=== PATIENT | male | born 1945 | race Caucasian/White ===

== ENCOUNTER → 2020-07-11 13:43 | Outpatient (BNVA) | payer MEDICARE, SELFPAY | PROVIDERS: PCP Family Medicine; Referring Provider Family Medicine; Visit Provider Internal Medicine | DX: I25.10 Atherosclerotic heart disease of native coronary artery without angina pectoris (principal); E78.5 Hyperlipidemia, unspecified; F17.200 Nicotine dependence, unspecified, uncomplicated | CPT/HCPCS: 93005; 99212 ==

== ENCOUNTER → 2020-08-06 11:36 | Outpatient (BNVA) | payer MEDICARE, SELFPAY | PROVIDERS: PCP Family Medicine; Referring Provider Family Medicine; Visit Provider Surgery Vascular Surgery | DX: I71.4 Abdominal aortic aneurysm, without rupture (principal) | CPT/HCPCS: 99212 ==

== ENCOUNTER → 2020-08-08 12:25 | Outpatient (BNVA) | payer MEDICARE, SELFPAY | PROVIDERS: PCP Family Medicine; Referring Provider Family Medicine; Visit Provider Nurse Practitioner Family | DX: Z12.11 Encounter for screening for malignant neoplasm of colon (principal); R14.0 Abdominal distension (gaseous) | CPT/HCPCS: Q3014 ==

== ENCOUNTER → 2020-08-21 13:21 | Outpatient (BNVA) | payer MEDICARE, SELFPAY | PROVIDERS: PCP Nurse Practitioner Family; Visit Provider Internal Medicine | DX: Z76.89 Persons encountering health services in other specified circumstances (principal) ==

== ENCOUNTER → 2020-10-04 11:05 | Outpatient (REF) | payer MEDICARE, SELFPAY ==
--- NOTE | 2020-10-04 11:09 | CA_ITS ---
Transthoracic Echocardiogram Patient (Last, First, Middle): Aroldo Hill, Gender: Male Date of : 1945 Age: 74 Procedure Date: 10/04/2020 Procedure Type: Transthoracic Echocardiogram Location: OP Height: 172.72 cm Weight: 82.56 kg BSA: 1.96 m2 Heart Rate: bpm BP: 130 / 82 mmHg Chief Of Anesthesiology: IBETH Hernandez MD: Filemon Moore MD Symptoms: I25.10 - Atherosclerotic heart disease of [place] coronary artery without angina pectoris Study Quality: Fair ECG Rhythm: Sinus Conclusions: - The left ventricular systolic function is normal. The visually estimated ejection fraction is between 65-70%. - No obvious valvular pathology seen on this study. Findings Left Ventricle Normal left ventricular cavity size. There is normal left ventricular wall thickness. The left ventricular systolic function is normal. The visually estimated ejection fraction is between 65-70%. There is no evidence of regional wall motion abnormalities. Diastolic function is normal for age. Right Ventricle Normal right ventricular cavity size and systolic function. Atria The left atrium is normal in size. The right atrium is normal in size. Aortic Valve The aortic valve was not well visualized. There is no aortic valve stenosis. There is no aortic valve regurgitation. Mitral Valve The mitral valve appears normal. There is no mitral valve regurgitation. There is no mitral valve stenosis. Pulmonic Valve The pulmonic valve was not well visualized. Tricuspid Valve Normal tricuspid valve structure. There is trace tricuspid valve regurgitation. The pulmonary artery systolic pressure is normal. Great Vessels The aortic annulus, sinuses of valsalva, and asc aorta are normal in size. Venous The inferior vena cava is normal in size and collapses greater than 50% with inspiration. Pericardium/Pleural There is no evidence of pericardial effusion. Prior Study Comparison No significant change compared to prior study dated: 02/28/2019. Recommendations, Care & Conclusions No obvious valvular pathology seen on this study. Measurements M-Mode Liner Measurements Normals - Women/Men AOV Cusps: 2.50 1.5-2.6 cm/m2 2D Linear Measurements IVSd: 0.98 0.6-0.9/0.6-1.0 cm LVIDd: 4.31 3.9-5.3/4.2-5.9 cm LVIDd Index: 2.20 2.4-3.2/2.2-3.1 cm/m2 LVIDs: 2.65 2.0-3.6 cm LVPWd: 0.94 0.7-1.1 cm Ao Root: 3.30 2.1-3.5 cm LA Diam: 3.40 2.7-3.8/3.0-4.0 cm LAIDs Index: 1.73 1.5-2.3 cm/m2 LV Mass: 168.21 67-162/88-224 g LV Mass Index: 85.82 43-95/49-115 g/m2 LVOT Diam: 2.30 3.0+(-)1.3 cm 2D Systolic Function EF 4C: 64.60 >55% EF 2C: 66.50 >55% EF BiP: 65.60 >55% Mitral Valve MV Pk E: 0.86 MV PK A: 0.87 MV Decel Time: 324.00 E/A: 1.00 E'Lateral: 9.90 E'Medial: 7.29 E/E' Med: 11.80 E/E' Lat: 8.70 PHT: 95.00 MVA PHT: 2.32 Decel [place]: 2.65 Aortic Valve AoV Pk Rj: 1.47 AoV Pk Grad: 9.00 LVOT LVOT Pk Rj: 0.91 LVOT Mn Rj: 0.68 LVOT VTI: 0.25 LVOT Pk Grad: 3.00 LVOT Mn Grad: 2.00 LVOT Diam: 2.30 LVOT Area: 4.15 Diastolic Function MV Pk E: 0.86 MV Pk A: 0.87 E/A: 1.00 E'Medial: 7.29 E/E' Med: 11.80 E' Laterial: 9.90 E/E' Lat: 8.70 Tricuspid Valve RA Press: 3.00 RVSP: 17.00 Great Vessels Aorta Ao Root-2D: 3.30 2.0-3.7 cm Ao Asc: 3.20 2.1-3.4 cm Ao Arch: 2.90 Updated in Other Vendor System with Status of Final Filemon Moore MD electronically signed on 10/05/2020 4:22:36 PM with status of Final
== END ==
LOC: HO.CARD 11:05
PROVIDERS: Visit Provider Internal Medicine Cardiovascular Disease
DX: R07.2 Precordial pain (principal); I25.10 Atherosclerotic heart disease of native coronary artery without angina pectoris
CPT/HCPCS: 93306

== ENCOUNTER 2020-10-28 12:09 | Outpatient (REF) | payer MEDICARE, SELFPAY | END 2020-10-28 12:10 | disposition home or self-care (01) | LOC: HO.LAB 12:09 | PROVIDERS: Visit Provider Internal Medicine | DX: Z20.822 Contact with and (suspected) exposure to COVID-19 (principal) | CPT/HCPCS: 36415; C9803; U0003; U0005 ==

== ENCOUNTER 2021-04-25 07:49 | Outpatient (REF) | payer MEDICARE, SELFPAY ==
--- NOTE | ~2021-04-25 | US_ITS ---
EXAMINATION: US RETROPERITONEAL LIMITED (AORTA) CLINICAL INFORMATION: Follow up AAA. COMPARISON: Ultrasound of the abdominal aorta dated 12/10/2017 which measured the abdominal aortic aneurysm at 4.1 x 4.3 cm. TECHNIQUE: Grayscale, color Doppler and spectral Doppler evaluation of the abdominal aorta. FINDINGS: There is a distal abdominal aortic aneurysm now measuring 5.0 x 5.6 cm. The measurements of the aorta in maximum AP and transverse dimensions respectively are as follows: Proximal: 2.3 x 2.4 cm. Previously, 2.5 x 2.4 cm. Mid: 2.2 x 2.3 cm. Previously, 2.2 x 2.3 cm. Distal: 5.0 x 5.6 cm. Previously, 4.1 x 4.3 cm. The measurements of the common iliac arteries in maximum AP dimension are as follows: Right Common Iliac Artery: 1.1 x 1.1 cm. Previously, 1.3 cm. Left Common Iliac Artery: 1.3 x 1.1 cm. Previously, 1.1 cm. US/US abdominal aortic aneurysm IMPRESSION: Distal fusiform abdominal aortic aneurysm now measuring a maximum diameter of 5.6 cm. Previously, the abdominal aortic aneurysm maximum diameter was 4.3 cm.
== END 2021-04-25 07:50 | disposition home or self-care (01) ==
LOC: HO.US 07:49
PROVIDERS: PCP Internal Medicine; Visit Provider Internal Medicine
DX: I71.4 Abdominal aortic aneurysm, without rupture (principal)
CPT/HCPCS: 76706

== ENCOUNTER → 2021-04-29 13:20 | Outpatient (BNVA) | payer MEDICARE, SELFPAY | PROVIDERS: PCP Family Medicine; Referring Provider Internal Medicine; Visit Provider Surgery Vascular Surgery | DX: I71.4 Abdominal aortic aneurysm, without rupture (principal) | CPT/HCPCS: 99212 ==

== ENCOUNTER → 2021-05-08 13:15 | Outpatient (BNVA) | payer MEDICARE, SELFPAY | PROVIDERS: PCP Family Medicine; Referring Provider Family Medicine; Visit Provider Internal Medicine | DX: Z01.810 Encounter for preprocedural cardiovascular examination (principal); I25.10 Atherosclerotic heart disease of native coronary artery without angina pectoris; I42.8 Other cardiomyopathies; R06.02 Shortness of breath | CPT/HCPCS: 99212 ==

== ENCOUNTER 2021-05-14 09:38 | Outpatient (REF) | payer MEDICARE, SELFPAY ==
--- NOTE | ~2021-05-14 | CT_ITS ---
EXAMINATION: CT ANGIOGRAM ABDOMEN AND PELVIS CLINICAL INFORMATION: Abdominal aortic aneurysm, without rupture. COMPARISON: None TECHNIQUE: Multiple axial images were obtained through the abdomen and pelvis following the administration of 80 mL of Omnipaque 350 intravenous contrast. Images were reviewed on a dedicated 3-D workstation. This CT examination was performed using dose optimization techniques as appropriate, variously including the following: *Automated exposure control *Adjustment of mA and/or kV according to patient size (this includes techniques or standardized protocols for targeted exams where dose is matched to indication/reason for exam; i.e. extremities or head) *Use of iterative reconstruction technique DLP: 257 mGy-cm VASCULAR FINDINGS: An attempt was made to create a 3-D model of the abdominal aorta, and my measurements perpendicular to the center line are 5.5 x 4.9 cm (504:380). Considerable circumferential thrombus is present within the aneurysm. The aneurysm begins approximately 2.5 cm below the level of the renal arteries. The aneurysm ends at the aortic bifurcation. The iliac vessels are very tortuous but widely patent without aneurysm or stenosis. Femoral bifurcations are patent. Proximal profunda femoris and superficial femoral arteries are widely patent. The celiac SMA and JERRY are patent. There are single renal arteries present bilaterally which are patent. NONVASCULAR FINDINGS: LUNG BASES: Bibasilar scarring/atelectasis is seen. LIVER, GALLBLADDER, AND BILIARY TREE: The liver is normal in size, shape, and attenuation. No focal hepatic lesion or biliary ductal dilatation is present. The gallbladder is unremarkable with no evidence of radiopaque gallstones, gallbladder wall thickening, or obvious pericholecystic inflammatory changes. PANCREAS: Unremarkable. SPLEEN: Unremarkable. ADRENAL GLANDS: Unremarkable. KIDNEYS AND URETERS: The kidneys are normal in size, shape, and attenuation. No hydronephrosis, hydroureter, or calculi seen. No perinephric stranding. BLADDER: Unremarkable. GASTROINTESTINAL TRACT: A small hiatal hernia is present. Colonic diverticula are present without diverticulitis. The small and large bowel are otherwise unremarkable. The appendix is unremarkable. ABDOMINAL WALL: No significant hernia is appreciated. LYMPH NODES: No retroperitoneal lymphadenopathy. PELVIC VISCERA: Unremarkable. OSSEOUS STRUCTURES: Unremarkable. CT/CT angio abdomen pelvis IMPRESSION: Infrarenal abdominal aortic aneurysm with maximal dimension of 5.5 cm. Aneurysm begins 2.5 cm below the level of the renal arteries and ends at the aortic bifurcation. Incidental nonvascular findings, as described above.
[2021-05-14 10:32] LABS: Blood Urea Nitrogen 14 mg/dL (9-16); Estimated Glomerular Filt Rate 60
[2021-05-14] MEDS: iohexoL 350 MG/ML 100 ML INFUS..BTL IV (11:34)
== END 2021-05-14 09:39 | disposition home or self-care (01) ==
LOC: HO.CT 09:38
PROVIDERS: Visit Provider Surgery Vascular Surgery
DX: I71.4 Abdominal aortic aneurysm, without rupture (principal)
CPT/HCPCS: 36415; 74174; 82565; 84520; Q9967

== ENCOUNTER → 2021-05-19 09:33 | Outpatient (REF) | payer MEDICARE, SELFPAY ==
--- NOTE | ~2021-05-19 | NM_ITS ---
Lexiscan Myocardial perfusion study Indication: Preoperative cardiac evaluation, coronary artery disease Technique: The patient was brought in for a Lexiscan perfusion study on 05/19/2021 and was injected 0.4 mg of Lexiscan intravenously. Within a minute of this injection 30 mCi of sestamibi was given intravenously. Images were obtained using the SPECT gamma camera interlaced with the gating device. Images were obtained in supine position. Resting perfusion study was performed on 05/22/2021. Patient was administered 30 mCi of sestamibi intravenously at rest. Images were then obtained in supine position. Total DLP 86mGy-cm. Images were processed with the software and compared side to side in short axis, horizontal long axis and vertical long axis views. Findings: Raw acquisition was reviewed. The stress perfusion study showed mildly diminished tracer uptake at the apex and adjacent part of inferior wall and inferior septum. Overall, uptake seems improved with CT attenuation correction excluding focal location of the apex. Overall, this is all likely artifactual. The gated study shows normal LV systolic function with calculated LVEF of 61%. LV cavity is normal in size. The gated study shows normal wall thickening and contraction of segments. Resting study shows mildly reduced tracer uptake at the apex, apical part of inferior wall. There is improvement with CT attenuation correction excluding a focal location of the apex. Gating at rest reveals normal wall motion with ejection fraction at 67%. The findings are consistent with no definite reversible or fixed defects. SC/SC cardiolite stress test Impression: 1. Myocardial perfusion imaging study shows likely normal myocardial perfusion. 2. Gated LVEF is 61% during stress and 67% during rest. 3. Transient ischemic dilatation not present. EKG component of the test reported separately.
--- NOTE | 2021-05-19 09:35 | CA_ITS ---
Acquisition Time: 2021-05-19 09:33:15 Total Exercise Time: 00:02:00 Test Indications: I71.4 - Abdominal aortic aneury Medications: Protocol: LEXISCAN Max HR: 078 BPM 53% of Pred: 147 BPM Max BP: 120/082 mmHG Max Work Load: 1.0 METS Pharmacological stress test with Lexiscan injection, while sitting and kicking his legs, without anginal symptoms, without arrythmia, with normotensive response to injection, with nondiagnostic EKG for ischemia. Nuclear images pending. Test reviewed with Dr Wang. Referred By: Filemon Moore Overread By: TROY ELY
== END ==
LOC: HO.CARD 09:33
PROVIDERS: Visit Provider Internal Medicine
DX: I71.4 Abdominal aortic aneurysm, without rupture (principal); R06.02 Shortness of breath
CPT/HCPCS: 78452; 93017; A9500; J0280; J2785

== ENCOUNTER → 2021-05-27 13:11 | Outpatient (BNVA) | payer MEDICARE, SELFPAY | PROVIDERS: PCP Family Medicine; Visit Provider Surgery Vascular Surgery | DX: I71.4 Abdominal aortic aneurysm, without rupture (principal) | CPT/HCPCS: 99212 ==

== ENCOUNTER 2021-06-16 06:08 | Inpatient (IN) | payer MEDICARE, SELFPAY ==
[2021-06-12 15:20] VITALS: BMI 28.5
[2021-06-12 15:33] VITALS: BMI 28.5
--- NOTE | 2021-06-13 13:05 | HO.ANESPROP2 ---
Documented by User: Colleen Murphy NP 06/13/21 13:16 HPI - Anesthesia Eval Consult details Narrative: 75yo M for Aortic Endovascular Repair Cardiology cleared @ [facility] Booked in OR without PAT (d/t reschedule). Labs and EKG DOS. [facility] Active Problems Active Problems: All Active Problems (Updated 06/12/21 @ 15:24 by Sandra Cano RN) Precordial chest pain (Acute) Preoperative cardiovascular examination (Acute) SOB (shortness of breath) (Acute) AAA (abdominal aortic aneurysm) without rupture (Acute) Atherosclerotic cardiovascular disease (Acute) Past Medical History Medical History AAA (abdominal aortic aneurysm) without rupture Atherosclerotic cardiovascular disease COPD (chronic obstructive pulmonary disease) Depression Elevated cholesterol GERD (gastroesophageal reflux disease) Gout Myocardial infarction NICM (nonischemic cardiomyopathy) Smoker Family History Family History Father Family history of high blood pressure Mother No problems noted. Surgical History Surgical History History of hernia repair Hx of cardiac catheterization Social History Social History Alcohol intake: never Patient Tobacco Use Status: Current everyday Tobacco user Tobacco use type: Cigarette Cigarettes Per Day: 13 Years Smoked: 56 Smoked in Last 30 Days: Yes Use of substances other than those prescribed or required for medical reasons: Yes Are you DNR?: No Advance Directives Information Provided: Yes Advance Directives on File: No Meds Allergies Allergy/AdvReac Type Severity Reaction Status Date / Time No Known Allergies Allergy Verified 06/16/21 06:36 [No Known Allergies*] Home Medications Medication Instructions Recorded Confirmed Last Taken Type aspirin 81 mg tablet,delayed 81 mg PO DAILY 07/11/20 06/16/21 06/15/21 History release atorvastatin 40 mg tablet 40 mg PO DAILY 07/11/20 06/12/21 Unknown History citalopram 10 mg tablet 10 mg PO DAILY 07/11/20 06/12/21 06/16/21 05:30 History fluticasone propionate 50 1 spray INTRANASAL DAILY 07/11/20 06/12/21 Unknown History mcg/actuation nasal spray,suspension metoprolol succinate 25 mg 25 mg PO DAILY 11/08/1806/12/21 06/16/21 05:30 History tablet,extended release 24 hr multivitamin 1 tab PO DAILY 07/11/20 06/12/21 Unknown History omeprazole 20 mg capsule,delayed 20 mg PO DAILY 07/11/20 06/12/21 06/16/21 05:30 History release oxycodone-acetaminophen 5 mg-325 1 tab PO TID PRN 07/11/20 06/12/21 Unknown History mg tablet Exam Exam Date and Time: June 13, 2021 1305 Height,Weight and Vital Signs: Height 5 ft 7 in Weight 82.554 kg Narrative Narrative: ECHO 09/2020 Conclusions: - The left ventricular systolic function is normal.? The visually estimated ejection fraction is between 65-70%. ? - No obvious valvular pathology seen on this study.? NM cardiolite stress test 04/2021 Impression: ? 1.? Myocardial perfusion imaging study shows likely normal myocardial perfusion. 2.? Gated LVEF is 61% during stress and 67% during rest. 3. Transient ischemic dilatation not present. ? EKG component of the test reported separately. (Nondiagnostic) Assessment and Plan Assessment Anesthesia Assessment: Chart Reviewed Documented by User: Kaitna Dao MD 06/16/21 08:49 [facility] Active Problems Active Problems: All Active Problems (Updated 06/12/21 @ 15:24 by Sandra Cano RN) Precordial chest pain (Acute) Preoperative cardiovascular examination (Acute) SOB (shortness of breath) (Acute) AAA (abdominal aortic aneurysm) without rupture (Acute) Atherosclerotic cardiovascular disease (Acute) Denies recent chest pain. DC over 15 years ago Smoker. Last cigarette this am Past Medical History Medical History AAA (abdominal aortic aneurysm) without rupture Atherosclerotic cardiovascular disease COPD (chronic obstructive pulmonary disease) Depression Elevated cholesterol GERD (gastroesophageal reflux disease) Gout Myocardial infarction NICM (nonischemic cardiomyopathy) Smoker Family History Family History Father Family history of high blood pressure Mother No problems noted. Family history of problems with anesthesia: No Surgical History Surgical History History of hernia repair Hx of cardiac catheterization History of Problems with Anesthesia: No Social History Social History Alcohol intake: never Patient Tobacco Use Status: Current everyday Tobacco user Tobacco use type: Cigarette Cigarettes Per Day: 13 Years Smoked: 56 Smoked in Last 30 Days: Yes Use of substances other than those prescribed or required for medical reasons: Yes Are you DNR?: No Advance Directives Information Provided: Yes Advance Directives on File: No Meds Allergies Allergy/AdvReac Type Severity Reaction Status Date / Time No Known Allergies Allergy Verified 06/16/21 06:36 [No Known Allergies*] Home Medications Medication Instructions Recorded Confirmed Last Taken Type aspirin 81 mg tablet,delayed 81 mg PO DAILY 07/11/20 06/16/21 06/15/21 History release atorvastatin 40 mg tablet 40 mg PO DAILY 07/11/20 06/12/21 Unknown History citalopram 10 mg tablet 10 mg PO DAILY 07/11/20 06/12/21 06/16/21 05:30 History fluticasone propionate 50 1 spray INTRANASAL DAILY 07/11/20 06/12/21 Unknown History mcg/actuation nasal spray,suspension metoprolol succinate 25 mg 25 mg PO DAILY 07/11/20 06/12/21 06/16/21 05:30 History tablet,extended release 24 hr multivitamin 1 tab PO DAILY 07/11/20 06/12/21 Unknown History omeprazole 20 mg capsule,delayed 20 mg PO DAILY 07/11/20 06/12/21 06/16/21 05:30 History release oxycodone-acetaminophen 5 mg-325 1 tab PO TID PRN 07/11/20 06/12/21 Unknown History mg tablet Exam Height,Weight and Vital Signs: Height 5 ft 7 in Weight 82.554 kg Vital Signs Temp Pulse Resp BP Pulse Ox 06/16/21 06:38 97.5 F 50 16 144/69 H 96 Pertinent Lab Results Pertinent Lab Results: Lab Results 06/16/21 06/16/21 06/16/21 Range/Units 06:15 06:22 06:22 WBC 9.3 (4.8-10.8) X10*3/uL RBC 4.58 L (4.60-5.80) X10*6/uL Hgb 15.4 (14.0-18.0) g/dl Hct 45.6 (42-52) % MCV 99.6 H (80-98) fL MCH 33.6 H (27.0-33.0) pg MCHC 33.8 (31.0-36.0) g/dl RDW 12.3 (11.0-16.0) % Plt Count 183 (160-400) X10*3/uL MPV 10.4 (9.4-12.4) fL Absolute Nucleated RBC 0.000 (0.0-0.012) X10*3/uL Nucleated RBC % (auto) 0.0 (0.0-0.2) /100WBC PT 12.4 (9.9-13.0) SEC INR 1.1 (0.9-1.1) APTT 32.9 (24.1-38.0) SEC Sodium (135-145) mmol/L Potassium (3.3-5.1) mmol/L Chloride (96-108) mmol/L Carbon Dioxide (22-29) mmol/L Anion Gap (12-20) BUN (9-16) mg/dL Creatinine (0.5-1.4) mg/dL Estim Creat Clear Calc Estimated GFR Random Glucose (60-115) mg/dL Calcium (8.4-10.2) mg/dL COVID-19 ([facility]) Negative (Negative) COVID-19 Clin Com See Note Blood Type 06/16/21 06/16/21 Range/Units 06:22 06:22 WBC (4.8-10.8) X10*3/uL RBC (4.60-5.80) X10*6/uL Hgb (14.0-18.0) g/dl Hct (42-52) % MCV (80-98) fL MCH (27.0-33.0) pg MCHC (31.0-36.0) g/dl RDW (11.0-16.0) % Plt Count (160-400) X10*3/uL MPV (9.4-12.4) fL Absolute Nucleated RBC (0.0-0.012) X10*3/uL Nucleated RBC % (auto) (0.0-0.2) /100WBC PT (9.9-13.0) SEC INR (0.9-1.1) APTT (24.1-38.0) SEC Sodium 143 (135-145) mmol/L Potassium 4.0 (3.3-5.1) mmol/L Chloride 110 H (96-108) mmol/L Carbon Dioxide 26 (22-29) mmol/L Anion Gap 11 L (12-20) BUN 19 H (9-16) mg/dL Creatinine 1.07 (0.5-1.4) mg/dL Estim Creat Clear Calc 62.8 Estimated GFR > 60 Random Glucose 103 (60-115) mg/dL Calcium 8.9 (8.4-10.2) mg/dL COVID-19 ([facility]) (Negative) COVID-19 Clin Com Blood Type A Positive Narrative Narrative: ECHO 09/2020 Conclusions: - The left ventricular systolic function is normal.? The visually estimated ejection fraction is between 65-70%. ? - No obvious valvular pathology seen on this study.? NM cardiolite stress test 04/2021 Impression: ? 1.? Myocardial perfusion imaging study shows likely normal myocardial perfusion. 2.? Gated LVEF is 61% during stress and 67% during rest. 3. Transient ischemic dilatation not present. ? EKG component of the test reported separately. (Nondiagnostic) 12 lead EKG 06/16/2021: SB.45. Septal infarct age undetermined Airway Mallampati Class: II TM Dist: >3cm Neck ROM: Full Denture: Upper and Lower Heart: RRR Lungs: Bilateral wheezes. Lungs CTAB post albuterol treatment Assessment and Plan Assessment Anesthesia Assessment: Anesthesia Plan Discussed Final Anesthetic Review Family History of Problems with Anesthesia: No History of Problems with Anesthesia: No NPO: Yes ASA Class: III Final Preanesthetic Review: No Changes in Pt Med Stat, Meds/Allgs Chart Reviewed, Consent Obtained/Reviewed and Anes Risks/Benef Reviewed Patient Risk: Intermediate Procedure Risk: High Assessment/Block/Sedation in : Assess/Block/Sedation-SS Anesthetic Plan Anesthetic Plan: GA and Other (Arterial line) Disposition: Standard PACU and Inp. Admit - ICU
[2021-06-16] VITALS (19 sets, daily range): BP systolic 106–144; BP diastolic 39–69; PULSE 41–62; RESP 13–18; TEMP 36.2–37.1; O2SAT 89–99; BMI 28.1
--- NOTE | 2021-06-16 | ECG_ITS ---
Test Reason : ASCD, AAA, Smoker, NICM Blood Pressure : / mmHG Vent. Rate : 045 BPM Atrial Rate : 045 BPM P-R Int : 168 ms QRS Dur : 082 ms QT Int : 450 ms P-R-T Axes : 064 -19 056 degrees QTc Int : 389 ms Sinus bradycardia Low voltage QRS Abnormal ECG Heart rate has decreased Referred By: Colleen Murphy Electronically Signed By:LAVERN MILLS MD
--- NOTE | ~2021-06-16 | FL_ITS ---
EXAMINATION: XR FL WITH IMAGES CLINICAL INFORMATION: Abdominal aortic aneurysm. COMPARISON: CT angiogram 05/14/2021. TECHNIQUE: Fluoroscopy performed by Dr. Foreign Eddy. Fluoroscopy Time: 11.9 minutes. DAP: 36.6 Gycm2. Images: A total of 6 angiographic runs. FINDINGS: Progressive imaging demonstrates placement of an aortobiiliac stent graft. FL/FL guidance in OR IMPRESSION: Fluoroscopy and angiographic imaging provided for placement of aortobiiliac stent graft.
[2021-06-16 06:30] LABS: Hematocrit 45.6 % (42-52); Hemoglobin 15.4 g/dl (14.0-18.0); Mean Corpuscular HGB Conc 33.8 g/dl (31.0-36.0); Mean Corpuscular Hemoglobin 33.6 pg (27.0-33.0); Mean Corpuscular Volume 99.6 fL (80-98); Mean Platelet Volume 10.4 fL (9.4-12.4); Platelet Count 183 X10*3/uL (160-400); Red Blood Count 4.58 X10*6/uL (4.60-5.80); Red Cell Distribution Width 12.3 % (11.0-16.0); White Blood Count 9.3 X10*3/uL (4.8-10.8)
[2021-06-16 06:47] LABS: Anion Gap 11 (12-20); Blood Urea Nitrogen 19 mg/dL (9-16); Calcium 8.9 mg/dL (8.4-10.2); Carbon Dioxide 26 mmol/L (22-29); Chloride 110 mmol/L (96-108); Creatinine Clr Calc Pharmacy 62.8; Estimated Glomerular Filt Rate > 60; Glucose Random 103 mg/dL (60-115); Sodium 143 mmol/L (135-145)
[2021-06-16 06:53] LABS: INTERNATIONAL NORM RATIO 1.1 (0.9-1.1); Prothrombin Time 12.4 SEC (9.9-13.0)
[2021-06-16 06:54] LABS: COVID-19 Test Negative (Negative); IDNOW Serial# 9DD0AD1C
[2021-06-16 06:56] LABS: Partial Thromboplastin Time 32.9 SEC (24.1-38.0)
[2021-06-16] MEDS: Lactated Ringers 1,000 ML 50 ML IVCONT (07:21)
[2021-06-16] MEDS: Albuterol Sulfate (0.083%) 2.5 MG/3 ML VIAL.NEB INHALE (07:49)
--- NOTE | 2021-06-16 10:50 | MHC.SHP ---
Pre-Procedural Eval Section A Date of Service: 06/16/21 The patient is an INPATIENT: No The History & Physical has been completed within 30 days and I have reviewed it.: Yes Section B Chief Complaint: Post op Allergies: Allergies Allergy/AdvReac Type Severity Reaction Status Date / Time No Known Allergies Allergy Verified 06/16/21 06:36 [No Known Allergies*] Plan I have reviewed the history and physical and performed a pertinent physical examination on my patient. No changes have occurred unless specified.
--- NOTE | 2021-06-16 11:08 | P.OP_ITS ---
Operative Note Operative Note Date of Service: 06/16/21 Narrative: Operative note by [facility] Preoperative diagnosis: Abdominal aortic aneurysm without rupture Postoperative diagnosis: Same Procedure: Endovascular aortic aneurysm repair (Endologix AFX2) Surgeon:Blake Eddy M.D. Visual Merchandising Assistant: Dr. Lamar Anesthesia: General Specimens: 0 Drains:0 Estimated blood loss:100 ml Indications: 75-year-old gentleman with a 5.5 cm abdominal aortic aneurysm which was noted on CT scan now presents for endovascular repair. The patient has signed the informed consent after reviewing risks, complications, benefits, and alternatives previously discussed with the patient. The patient was given the opportunity to ask any additional questions or voice any concerns. All questions were answered to the patient's satisfaction. Procedure in detail: Patient was brought to the operating room prior to which a time-out was called for patient identification and site verification. Patient was prepped and draped in the standard surgical fashion. Cutdown was performed using standard technique using a transverse incision going on to the common femoral artery. This was isolated with silastic loops. Once down on the left side a direct arterial entry needle was used on the common femoral artery. A 7 [place] sheath was then placed. On the right side this was performed percut aneously under ultrasound guidance using arterial access needle and subsequently a [employer] wire and 7 [place] sheath. Once this was done angiogram was performed to measure the vessel length and characterize the anatomy and its topography. We exchanged on the left side for a Lunderquist wire. We loaded the SONYA 28-90/I 16-30 Endologix device on to the left side and advanced the contralateral wire up through the 19 [place] outer diameter affects introducer sheath using the wire guide. Contralateral wire snared and pulled out out the contra side. A FX 2 bifurcated device was transferred into the a FX introducer sheath and advanced under fluoro until the distal limbs were above the aortic bifurcation releasing the limbs of the graft. We pulled the entire system down onto the aortic bifurcation. We deployed the main body of the graft by pulling the control cord handle. We then deployed the contralateral limb by pulling the yellow limb cover. Then advancing a pigtail catheter over the contra wire until the tip was in contact with the wire lock. We held the pigtail catheter in place and pulled on the contra wire to release it from the wire lock. We then deployed the ipsilateral limb by pinning the inner core and retracting the a FX introducer sheath. Final angiogram was performed. Right side StarClose closure device was then used. On the left side we closed the cutdown directly visualization with a 6 0 Prolene suture on the artery. Deep layer was reapproximated using a 2 0 poly Sorb. Superficial layer with a 3-0 poly sore. Finally skin with a running subcuticular 4-0 Monocryl suture. Sterile dressing was applied. At the end the case sponge needle instrument counts were correct. Patient tolerated the procedure well and returned to recovery with stable vitals. This note is constructed using voice recognition software. While every effort has been made to ensure accuracy, open hearth laborer errors may have been included. Thank you for allowing me to participate in the care of your patient. Yours sincerely, Blake Eddy MD, FACS, R.P.V.I.
[2021-06-16] MEDS: 0.9 % Sodium Chloride 1,000 ML 80 ML IVCONT (12:16)
[2021-06-16] MEDS: Heparin Sodium,Porcine 5,000 UNIT/ML VIAL 5000 UNIT SUBCUT ×2 (12:16→18:06)
[2021-06-16] MEDS: ceFAZolin Sodium/Dextrose,Iso 2 GM/50 ML PIGGYBACK IV (14:23)
--- NOTE | 2021-06-16 16:06 | W.PM.CCCN ---
History of Present Illness Data of Consult Service Date: 06/16/21 Requesting physician: Blake Eddy Primary Care Provider: Paulo Harden MD HPI Reason for consult: Postop endovascular repair of AAA 75-year-old ongoing smoker with COPD and underlying hypertension and very questionable history of cardiomyopathy the based on an ejection fraction from an echo that was in the mid 30s but subsequent to this and and done recently as a preop we have corroboration of ejection fraction in the mid 60s by both echo without segmental wall motion abnormality and without primary valve or pericardial disease and by nuclear stress testing which also failed to demonstrate any ischemia. Patient is also a hyperlipidemic on treatment Underwent successful endovascular repair without complication Review of Systems Review of Systems: Ten point review of systems negative [facility] Past Medical History Medical History AAA (abdominal aortic aneurysm) without rupture Atherosclerotic cardiovascular disease COPD (chronic obstructive pulmonary disease) Depression Elevated cholesterol GERD (gastroesophageal reflux disease) Gout Myocardial infarction NICM (nonischemic cardiomyopathy) Smoker Family History Family History Father Family history of high blood pressure Mother No problems noted. Surgical History Surgical History History of hernia repair Hx of cardiac catheterization Social History Social History Household Members: Family and Children Housing: Apartment Do you presently have visiting nurse or other home services: Yes (nurse that gives him medication every week, comes fridays) Alcohol intake: never Patient Tobacco Use Status: Current everyday Tobacco user Tobacco use type: Cigarette Cigarettes Per Day: 13 Years Smoked: 56 Smoked in Last 30 Days: Yes e-Cigarette/Vaping Use: Currently Using Patient Interested in Nicotine Replacement: No Patient Given Instructions on How to Stop Smoking: Yes Date Education Initiated: 06/16/21 Second Hand Smoke Exposure: No Use of substances other than those prescribed or required for medical reasons: Yes Substance Use Type: Marijuana Currently Displaying Signs/Symptoms of Drug Intoxication Withdrawal: No Any prior treatment program specific to substance use: No Have you been hit, kicked, punched, or otherwise hurt by someone within the past year? If so, by whom?: No Do you feel safe in your current relationship?: No Current Relationship Is there a partner from a previous relationship who is making you feel unsafe now?: No Are you made to feel afraid or neglected: No Are you DNR?: No Advance Directives Information Provided: Yes Advance Directives on File: No Do you have thoughts of harming others: None Do you have a plan to hurt others: No Plan Recently lost weight without trying: No Nutrition Risks: No Nutritional Risk Meds Allergies Allergy/AdvReac Type Severity Reaction Status Date / Time No Known Allergies Allergy Verified 06/16/21 06:36 [No Known Allergies*] Active Medications: Current Medications Acetaminophen (Acetaminophen 325 Mg Tablet) 650 mg PO Q6H PRN PRN Reason: Pain, Mild (Pain Scale 1-3) Albuterol Sulfate (Albuterol Sulfate (0.083%) 2.5 Mg/3 Ml Vial.Elian) 2.5 mg INHALE ONCE PRN PRN Reason: Shortness of Breath/Wheezing Last Admin: 06/16/21 07:49 Dose: 2.5 mg Documented by: Aspirin (Aspirin Enteric Coated 81 Mg Tablet.) 81 mg PO DAILY [facility] Atorvastatin Calcium (Atorvastatin Calcium 40 Mg Tablet) 40 mg PO DAILY [facility] Fluticasone Propionate (Fluticasone Propionate Nasal 16 Gm [place]) 1 spray NOSTRIL-B DAILY [facility] Heparin Sodium (Porcine) (Heparin Sodium,Porcine 5,000 Unit/Ml Vial) 5,000 unit SUBCUT Q8H [facility] Last Admin: 06/16/21 12:16 Dose: 5,000 unit Documented by: Sodium Chloride (Ns) 1,000 mls @ 80 mls/hr IVCONT .[id number] [facility] Last Admin: 06/16/21 12:16 Dose: 80 mls/hr Documented by: Metoprolol Succinate (Metoprolol Succinate Er 25 Mg Tab.Er.24h) 25 mg PO DAILY [facility]; Protocol Morphine Sulfate (Morphine Sulfate 2 Mg/Ml Cartridge) 2 mg IVPUSH Q4H PRN; Protocol PRN Reason: Pain, Severe (Pain Scale 7-10) Multivitamins/Vitamin C (Multivitamin Tablet) 1 tab PO DAILY [facility] Omeprazole (Omeprazole 20 Mg Capsule.) 20 mg PO DAILY@0630 [facility] Ondansetron HCl (Ondansetron Hcl 4 Mg/2 Ml Vial) 4 mg IVPUSH ONCE PRN PRN Reason: Nausea and Vomiting Oxycodone HCl (Oxycodone Hcl Immed Release 5 Mg Tablet) 5 mg PO Q4H PRN PRN Reason: Pain, Moderate (Pain Scale 4-6 Simethicone (Simethicone 80 Mg Tab.Chew) 80 mg PO TID PRN PRN Reason: abdominal distention Sodium Chloride (0.9 % Sodium Chloride Flush 3 Ml Syringe) 3 ml IVFLUSH QSHIFT ROMEL Last Admin: 06/16/21 14:30 Dose: Not Given Documented by: Home Medications Medication Instructions Recorded Confirmed Last Taken Type aspirin 81 mg tablet,delayed 81 mg PO DAILY 07/11/20 06/16/21 06/15/21 History release atorvastatin 40 mg tablet 40 mg PO DAILY 07/11/20 06/12/21 Unknown History citalopram 10 mg tablet 10 mg PO DAILY 07/11/20 06/12/21 06/16/21 05:30 History fluticasone propionate 50 1 spray INTRANASAL DAILY 07/11/20 06/12/21 Unknown History mcg/actuation nasal spray,suspension metoprolol succinate 25 mg 25 mg PO DAILY 07/11/20 06/12/21 06/16/21 05:30 History tablet,extended release 24 hr multivitamin 1 tab PO DAILY 07/11/20 06/12/21 Unknown History omeprazole 20 mg capsule,delayed 20 mg PO DAILY 07/11/20 06/12/21 06/16/21 05:30 History release oxycodone-acetaminophen 5 mg-325 1 tab PO TID PRN 07/11/20 06/12/21 Unknown History mg tablet Physical Exam Vital Signs: Vital Signs: Last Vital Signs Temp 98.8 F 06/16/21 11:38 Pulse 43 L 06/16/21 15:00 Resp 13 06/16/21 15:00 BP 117/49 L 06/16/21 15:00 Pulse Ox 92 06/16/21 15:00 Body Mass Index 28.1 Awake alert and without discomfort and nonfocal neurologically EKG normal sinus rhythm her actually sinus bradycardia at rate [address]-T change contributed to by the metoprolol Cardiac exam with flat neck veins and good bilateral carotid upstrokes Chest in clear bilaterally without adventitious sounds Abdomen soft with good bowel sounds and no organomegaly Results Labs CBC & Chem 7: 06/16/21 06:22 06/16/21 06:22 Labs: Short CBC 06/16/21 Range/Units 06:22 WBC 9.3 (4.8-10.8) X10*3/uL Hgb 15.4 (14.0-18.0) g/dl Hct 45.6 (42-52) % Plt Count 183 (160-400) X10*3/uL BMP 06/16/21 06:22 Sodium 143 Potassium 4.0 Chloride 110 H Carbon Dioxide 26 BUN 19 H Creatinine 1.07 Calcium 8.9 Assessment and Plan (1) Precordial chest pain: Status: Acute (2) Preoperative cardiovascular examination: Status: Acute (3) SOB (shortness of breath): Status: Acute (4) AAA (abdominal aortic aneurysm) without rupture: Status: Acute (5) Atherosclerotic cardiovascular disease: Status: Acute P.r.n. blood pressure management and observation for bleeding complication or any ischemic manifestation
--- NOTE | 2021-06-16 19:17 | PC.NURSE ---
pt to icu from PACU, VSS. A&O x4, LS clear, satting well on RA, u/o wnl from [facility]. [place] to l radial artery, correlates to manual bp. Pt tolerating food, requesting repos at tolerated to alleviate back pain. pt resting throughout afternoon
[2021-06-17] VITALS (15 sets, daily range): BP systolic 98–132; BP diastolic 37–57; PULSE 43–48; RESP 14–22; TEMP 36.8–37.1; O2SAT 90–95; BMI 27.2
[2021-06-17] MEDS: Omeprazole 20 MG CAPSULE.DR PO (05:17)
[2021-06-17] MEDS: Heparin Sodium,Porcine 5,000 UNIT/ML VIAL 5000 UNIT SUBCUT ×2 (05:19→12:09)
[2021-06-17 05:27] LABS: MANUAL DIFF FLAG NO
[2021-06-17 05:30] LABS: Basophils Percent Auto 0.1 % (0-2); Hemoglobin 12.3 g/dl (14.0-18.0); Imm Gran Abs Auto 0.04 X10*3/uL (0.00-0.03); Imm Gran Pct Auto 0.3 % (0.0-0.4); Lymphocytes Absolute Auto 1.9 X10*3/uL (1.2-4.9); Lymphocytes Percent Auto 13.2 % (20-40); Mean Corpuscular HGB Conc 33.2 g/dl (31.0-36.0); Mean Corpuscular Hemoglobin 33.2 pg (27.0-33.0); Mean Platelet Volume 10.5 fL (9.4-12.4); Monocytes Absolute Auto 1.1 X10*3/uL (0.1-1.2); Monocytes Percent Auto 7.8 % (2-11); Neutrophils Absolute Auto 11.2 X10*3/uL (2.0-8.3); Neutrophils Percent Auto 78.6 % (45-73); Platelet Count 147 X10*3/uL (160-400); Red Cell Distribution Width 12.1 % (11.0-16.0); White Blood Count 14.3 X10*3/uL (4.8-10.8)
[2021-06-17 05:48] LABS: Anion Gap 13 (12-20); Blood Urea Nitrogen 21 mg/dL (9-16); Calcium 7.9 mg/dL (8.4-10.2); Carbon Dioxide 20 mmol/L (22-29); Chloride 110 mmol/L (96-108); Creatinine Clr Calc Pharmacy 59.1; Estimated Glomerular Filt Rate > 60; Glucose Random 124 mg/dL (60-115); Potassium 4.1 mmol/L (3.3-5.1); Sodium 139 mmol/L (135-145)
[2021-06-17] MEDS: Atorvastatin Calcium 40 MG TABLET PO (07:15)
[2021-06-17] MEDS: Aspirin Enteric Coated 81 MG TABLET.DR PO (07:15)
[2021-06-17] MEDS: Fluticasone Propionate Nasal 16 GM SPRAY 1 SPRAY NOSTRIL-B (07:15)
[2021-06-17] MEDS: Multivitamin TABLET 1 TAB PO (07:16)
--- NOTE | 2021-06-17 09:50 | HO.POSTANES ---
Post Anesthesia Evaluation Post Anesthesia Evaluation Vital Signs: Vital Signs Temp Pulse Resp BP Pulse Ox 06/17/21 09:00 46 L 19 132/57 L 91 L 06/17/21 08:00 98.3 F 43 L 15 110/38 L 91 L 06/17/21 07:16 45 L 105/37 L 06/17/21 06:57 45 L 17 108/42 L 94 06/17/21 05:54 44 L 22 H 110/47 L 92 06/17/21 05:00 44 L 16 108/40 L 91 L 06/17/21 04:00 98.4 F 44 L 20 107/42 L 94 06/17/21 02:57 44 L 18 105/47 L 91 L 06/17/21 02:00 46 L 16 117/49 L 91 L 06/17/21 01:00 45 L 20 108/50 L 91 L 06/17/21 00:00 98.7 F 45 L 14 98/45 L 90 L 06/16/21 23:00 44 L 16 116/50 L 89 L 06/16/21 22:00 45 L 16 120/42 L 93 Anesthesia: General Endotracheal-GETA Mental Status: Awake Pain Control: Satisfactory Nausea/Vomiting: None Hydration: Adequate Anesthesia-Related Issues: No Anes. Related Issues
[2021-06-17 10:54] LABS: Glucose, Whole Blood 86 mg/dL (60-115)
--- NOTE | 2021-06-17 12:51 | MHC.CM.PN ---
Met with pt to discuss d/c planning: pt resides with family and is independent with all care needs. His PCP is someone new from [facility]. He has no services or barriers to follow up care. - states he has 9 daughters that assist if needed. Pt will call family for transportation home. CM to follow
--- NOTE | 2021-06-17 13:19 | PM.DS ---
DS: Providers Provider Date of Service: 06/17/21 Date of admission: 06/16/21 06:08 Primary care physician: Paulo Harden MD DS: Diagnosis Discharge Diagnosis (1) Precordial chest pain: Status: Acute (2) Preoperative cardiovascular examination: Status: Acute (3) SOB (shortness of breath): Status: Acute (4) AAA (abdominal aortic aneurysm) without rupture: Status: Acute (5) Atherosclerotic cardiovascular disease: Status: Acute DS: Summary Hospital Course Hospital Course: Patient was admitted on 06/16/2021. He underwent elective endovascular aortic aneurysm repair with an endograft Endologix AFX 2 device. He had no postprocedure issues. He was observed overnight in our ICU. Postop day 1 A-line and Kam were removed. He was tolerating a regular diet. He was subsequently discharged Time Spent with Patient Time attestation: Total time spent providing and/or coordinating discharge services: Discharge coordination time: Less than 30 minutes Quality: Stroke Does the patient have a stroke diagnosis?: No Physical Exam Vital Signs: Vital Signs: Last Vital Signs Temp 98.3 F 06/17/21 08:00 Pulse 46 L 06/17/21 12:00 Resp 18 06/17/21 12:00 BP 125/57 L 06/17/21 12:00 Pulse Ox 95 06/17/21 12:00 Body Mass Index 27.2 DS: Data Data Completed and Pending Labs on day of discharge: Laboratory Results - last 24 hr 06/17/21 06/17/21 06/17/21 05:15 05:15 10:50 WBC 14.3 H RBC 3.70 L Hgb 12.3 L D Hct 37.0 L MCV 100.0 H MCH 33.2 H MCHC 33.2 RDW 12.1 Plt Count 147 L MPV 10.5 Immature Gran % (Auto) 0.3 Neut % (Auto) 78.6 H Lymph % (Auto) 13.2 L [place] % (Auto) 7.8 Eos % (Auto) 0.0 Baso % (Auto) 0.1 Lymph # (Auto) 1.9 [place] # (Auto) 1.1 Eos # (Auto) 0.0 Baso # (Auto) 0.0 Abs Immat Gran (auto) 0.04 H Absolute Neuts (auto) 11.2 H Absolute Nucleated RBC 0.000 Nucleated RBC % (auto) 0.0 Sodium 139 Potassium 4.1 Chloride 110 H Carbon Dioxide 20 L Anion Gap 13 BUN 21 H Creatinine 1.04 Estim Creat Clear Calc 59.1 Estimated GFR > 60 POC Glucose 86 Random Glucose 124 H Calcium 7.9 L D Discharge Plan Discharge Patient Disposition: Home, Self-Care Discharge Diagnosis: Abdominal aortic aneurysm without rupture Referrals: Paulo Harden MD [Primary Care Provider] - 1 Week Discharge Medications: Continued simethicone [Gas Relief (simethicone)] 80 mg tablet,chewable 80 mg PO TID-QID PRN (Reason: abdominal distention) Qty: 120 RF: 2 aspirin 81 mg tablet,delayed release (DR/EC) 81 mg PO DAILY RF: 0 metoprolol succinate 25 mg tablet extended release 24 hr 25 mg PO DAILY RF: 0 atorvastatin 40 mg tablet 40 mg PO DAILY RF: 0 oxycodone-acetaminophen 5-325 mg tablet 1 tab PO TID PRN (Reason: Gastrointestinal Spasms Or Cramping) RF: 0 multivitamin Tablet 1 tab PO DAILY RF: 0 fluticasone propionate 50 mcg/actuation spray,suspension 1 spray intranasal DAILY RF: 0 citalopram 10 mg tablet 10 mg PO DAILY RF: 0 omeprazole 20 mg capsule,delayed release(DR/EC) 20 mg PO DAILY RF: 0 Discharge Orders: Discharge Order (Routine); Ordered 06/17/21 Ordered By: Blake Eddy Diet: advance to usual diet Activity on Discharge: As tolerated Stand Alone Forms: Patient Portal Discharge page Activity Restrictions/Additional Instructions: Skin glue was used and you may shower as early as tomorrow. Take it easy today and you may ambulate around the house. Within 24 hours you can resume normal activity You may climb a flight of stairs as tolerated Do not lift anything heavier than a gallon of milk for [address] Eddy in follow-up in approximately 2 weeks time. You should already have an appointment if not please call my office at [phone] There is no change in your medications If you notice excessive bleeding from the groin please immediately call my office or return to the emergency room. Care Plan Goals: Surveillance of abdominal aortic aneurysm Health Concerns: Abdominal aortic aneurysm Plan of Treatment: Postop surveillance Assessment: Abdominal aortic aneurysm with out rupture
== END 2021-06-17 13:30 | disposition home or self-care (01) | DRG 269 ==
LOC: HO.SSSA 08:19 → HO.ICU 10:53
PROVIDERS: Admitting Provider Surgery Vascular Surgery; PCP Internal Medicine; Visit Provider Surgery Vascular Surgery
PROC: 04V03ZZ Restriction of Abdominal Aorta, Percutaneous Approach (ICD-10-PCS; principal; 2021-06-16 07:30)
DX: I71.4 Abdominal aortic aneurysm, without rupture (principal); F17.210 Nicotine dependence, cigarettes, uncomplicated; Z71.6 Tobacco abuse counseling; Z20.822 Contact with and (suspected) exposure to COVID-19; Z79.82 Long term (current) use of aspirin; Z79.51 Long term (current) use of inhaled steroids; Z79.899 Other long term (current) drug therapy
CPT/HCPCS: 36415; 80048; 82947; 85025; 85027; 85610; 85730; 86850; 86900; 86901; 87635; 93005; 94640; C1760; C1768; C1769; C1887; C1894; J0690; J1100; J1170; J2250; J2370; J2405; J3010; Q9967

== ENCOUNTER → 2021-07-08 10:19 | Outpatient (BNVA) | payer MEDICARE, SELFPAY | PROVIDERS: PCP Internal Medicine; Visit Provider Surgery Vascular Surgery | DX: I71.4 Abdominal aortic aneurysm, without rupture (principal) | CPT/HCPCS: 99212 ==

== ENCOUNTER 2023-09-17 08:41 | Outpatient (REF) | payer MEDICARE, SELFPAY ==
--- NOTE | ~2023-09-17 | MM_ITS ---
EXAMINATION: BONE DENSITOMETRY CLINICAL INDICATION: Screening. COMPARISON: This is the patient's baseline examination. TECHNIQUE: Using a [employer] DXA System (software version: 13.1) manufactured by [employer], dual-energy x-ray absorptiometry was performed of the lumbar spine and left hip. The images are of good technical quality. Summary results are attached. FINDINGS: LEFT FEMUR, NECK: BMD 0.960 g/cm2, Z-score 0.4, T-score -0.8, normal. LEFT FEMUR, TOTAL: BMD 1.042 g/cm2, Z-score 0.3, T-score -0.4, normal. AP SPINE L1-L2 (excluding L3 and L4): The data of L1-L4 has been changed to exclude the L3 and L4 vertebral bodies, because degenerative sclerosis at these levels may cause overestimation of lumbar spine density. BMD 1.177 g/cm2, Z-score 0.2, T-score -0.2, normal. IDENTIFIED RISK FACTORS: Secondary osteoporosis (partial gastrectomy), tobacco use (current smoker). HISTORY OF FRACTURE: None listed. MEDICATIONS: None listed. MM/XR DEXA axial skeleton IMPRESSION: 1. DIAGNOSIS: Normal bone density based on the lowest T-score value of -0.8 in the femoral neck applying World Health Organization criteria. 2. 10-YEAR FRACTURE RISK PREDICTION, FRAX: According to the guidelines, FRAX calculation should only be performed on patients in the osteopenia bone density category. Therefore, FRAX was not performed on this patient. 3. Treatment Recommendations: NOF guidelines recommend consideration for treatment in postmenopausal women and men age 50 and older presenting with the following: -A hip or vertebral (clinical or morphometric) fracture. -T-score less than or equal to -2.5 at the femoral neck or spine after appropriate evaluation to exclude secondary causes. -Low bone mass at the hip or spine and a 10-year fracture probability by FRAX of greater than or equal to 3% for hip fracture or greater than or equal to 20% for major osteoporotic fracture based on the [place] adapted WHO algorithm. 4. Other Recommendations: All treatment decisions require clinical judgment and consideration of individual patient factors, including patient preferences, comorbidities, previous drug use, risk factors not captured in the FRAX model (e.g. frailty, falls, vitamin D deficiency, increased bone turnover, interval significant decline in bone density) and possible under or overestimation of fracture risk by FRAX. FUTURE SCAN RECOMMENDATION: People with diagnosed cases of osteoporosis or at high risk for fracture should have regular bone mineral density tests. For patients eligible for Medicare, routine testing is allowed once every 2 years. The testing frequency can be increased to one year for patients who have rapidly progressing disease, those who are receiving or discontinuing medical therapy to restore bone mass, or have additional risk factors.
== END 2023-09-17 08:42 | disposition home or self-care (01) ==
LOC: HO.MAMMO 08:41
PROVIDERS: PCP Nurse Practitioner Family; Visit Provider Nurse Practitioner Family
DX: Z13.820 Encounter for screening for osteoporosis (principal); M81.0 Age-related osteoporosis without current pathological fracture
CPT/HCPCS: 77080

== ENCOUNTER 2024-09-28 09:47 | Outpatient (REF) | payer MEDICARE, SELFPAY ==
[2024-09-28 11:12] LABS: MANUAL DIFF FLAG NO
[2024-09-28 11:18] LABS: Basophils Absolute Auto 0.1 X10*3/uL (0.0-0.2); Basophils Percent Auto 0.9 % (0-2); Eosinophils Absolute Auto 0.3 X10*3/uL (0.0-0.4); Eosinophils Percent Auto 4.1 % (0-4); Hematocrit 45.2 % (42.0-52.0); Hemoglobin 15.4 g/dl (14.0-18.0); Imm Gran Abs Auto 0.03 X10*3/uL (0.00-0.03); Imm Gran Pct Auto 0.4 % (0.0-0.4); Lymphocytes Absolute Auto 1.9 X10*3/uL (1.2-4.9); Lymphocytes Percent Auto 24.4 % (20-40); Mean Corpuscular HGB Conc 34.1 g/dl (31.0-36.0); Mean Corpuscular Hemoglobin 34.1 pg (27.0-33.0); Mean Corpuscular Volume 100.2 fL (80.0-98.0); Mean Platelet Volume 11.7 fL (9.4-12.4); Monocytes Absolute Auto 0.7 X10*3/uL (0.1-1.2); Monocytes Percent Auto 8.8 % (2-11); Neutrophils Absolute Auto 4.8 x10*3/uL (2.0-8.3); Neutrophils Percent Auto 61.4 % (45-73); Platelet Count 158 X10*3/uL (160-400); Red Blood Count 4.51 X10*6/uL (4.60-5.80); Red Cell Distribution Width 12.4 % (11.0-16.0); White Blood Count 7.8 X10*3/uL (4.8-10.8)
[2024-09-28 11:26] LABS: Estimated Average Glucose 123 mg/dL; Hemoglobin A1C 167.2064 umol/L; Hemoglobin A1c % 5.9 % (<6.0); Total Hemoglobin (HGBA1C) 4133.8776 umol/L
[2024-09-28 11:33] LABS: Alanine Aminotransferase 12 U/L (0-40); Albumin Level 3.8 g/dL (3.5-5.0); Alkaline Phosphatase 91 U/L (39-117); Anion Gap 10 (12-20); Aspartate Amino Transferase 23 U/L (5-37); Bilirubin Total 0.5 mg/dL (0.0-1.0); Blood Urea Nitrogen 13 mg/dL (9-16); Calcium 8.5 mg/dL (8.4-10.2); Carbon Dioxide 27 mmol/L (22-29); Chloride 110 mmol/L (96-108); Cholesterol 130 mg/dL (<200); Estimated Glomerular Filt Rate > 60; Glucose Random 115 mg/dL (60-115); HDL Cholesterol 27 mg/dL (>40); LDL Cholesterol Calculated 83 mg/dL (<100); Potassium 3.9 mmol/L (3.3-5.1); Sodium 143 mmol/L (135-145); Total Protein 7.5 g/dL (6.5-8.0); Triglycerides 103 mg/dL (<150)
--- OUTSIDE RECORDS SUMMARY | 2024-09-28 12:50 | XMS_ITS | Encounter Summary ---
Author Organization [employer] Address [address] [place] [address] Care Team Providers Care Apiculturist Name Role Phone Esperanza Torres MD Primary Care Provider [phone] Encounter Details Date Type Department Care Team (Latest Contact Info) Description 09/22/2024 Travel Social History Tobacco Use Types Packs/Day Years Used Date Smoking Tobacco: Every Day Cigarettes Smokeless Tobacco: Never Comments:Smoking 60 + years Alcohol Use Standard Drinks/Week Comments Not Currently 0 (1 standard drink = 0.6 oz pur e alcohol) 20 years no etoh Depression Answer Date Recorded Patient Health Questionnaire-9 Score 0 08/13/2023 Patient Health Questionnaire-9 Score 0 08/13/2023 Last PHQ-9: Questionnaire Data Not on file 1 10/14/2022 Housing Stability Answer Date Recorded What is your housing situation today? I have ronn patterson 08/13/[address] you li ve. Do you have problems with any of the following? None of the above 08/13/2023 Food Insecurity Answer Date Recorded Within the past 12 months, y ou worried that your food would run out before you got money to buy more: Never True 08/13/2023 Within the past 12 months,th e food you bought just didn't last and you didn't have enough money to get more: Never True Transportation Answer Date Recorded In the past 12 months, has l ack of transportation kept you from medical appts, meetings, work or from getting things needed for daily living? No 08/13/2023 Utilities Answer Date Recorded In the past 12 months, has t he electric, gas, oil or water company threatened to shut off services in your home? No 08/13/2023 Depression Answer Date Recorded Patient Health Questionnaire-2 Score 0 08/13/2023 Internet Access Answer Date Recorded Internet Access Q1 No 09/19/2024 Internet Access Q2 Not on file 09/19/2024 Sex and Gender Information Value Date Recorded Sex Assigned at Male 06/29/2022 10:15 AM EDT Legal Sex Male 10:15 AM EDT Gender Identity Male 06/29/2022 10:15 AM EDT Sexual Orientation Choose not to disclose 2021 10:15 AM EDT documented as of this encounter Plan of Treatment Upcoming Encounters Date Type Department Care Team (Late st Contact Info) Description 12/05/2024 11:00 AM EDT Office Visit [facility] MED[facility] [address] [place] [phone] 12/08/2024 9:[address] [facility]INE [address] [place] [phone] Lolita Su, RANJANA documented as of this encounter Visit Diagnoses Not on filedocumented in this encounter Additional Health Concerns Assessment Noted Time PHQ-9 Depression Total Score: 0 08/13/20 23 1:32 PM EST documented as of this encounter Care Teams Apiculturist Relationship Specialty Start Date End Date Esperanza Torres MD [address] [place] [phone] PCP - General Family Medicine 05/03/24 documented as of this encounter
--- OUTSIDE RECORDS SUMMARY | 2024-09-28 12:50 | XMS_ITS | Encounter Summary ---
Author Organization [employer] Address [address] [facility] [address] [place] [address] Care Team Providers Care Cold Meat Cook Name Role Phone Esperanza Torres MD Primary Care Provider [phone] Reason for Visit * Reason Onset Date Comments RS appt 09/05/2024 Encounter Details Date Type Department Care Team (Late st Contact Info) Description 09/05/2024 Telephone [facility] MEDICINE [address] [place] [address] [facility] [place], [place] RS appt Social History Tobacco Use Types Packs/Day Years [...] Access Answer Date Recorded Internet Access Q1 Yes 07/18/2024 Internet Access Q2 Not on file 07/18/2024 Sex and Gender Information Value Date Recorded Sex Assigned at Male 06/29/2022 10:15 AM EDT Legal Sex Male 10:15 AM EDT Gender Identity Male 06/29/2022 10:15 AM EDT Sexual Orientation Choose not to disclose 2021 10:15 AM EDT documented as of this encounter Miscellaneous Notes * Telephone Encounter - Vidhya Richard MA - 09/05/2024 10:37 AM EST T/C placed to pt to reschedule TP appt to 09/28/24. Unable to Lvm for pt to cb & schedule appt. Mailed new appt date documented in this encounter Plan of Treatment Upcoming Encounters Date Type Department Care Team (Late st Contact Info) Description 12/05/2024 11:00 AM EDT Office Visit [facility] MEDICINE [address] [place] [phone] 12/08/2024 9:30 AM EDT Telemedicine [facility] MEDICINE [address] [place] [phone] Lolita Su RN documented as of this encounter Visit Diagnoses Not on filedocumented in this encounter Additional Health Concerns Assessment Noted Time PHQ-9 Depression Total Score: 0 08/13/20 23 1:32 PM EST documented as of this encounter Care Teams Cold Meat Cook Relationship Specialty Start Date End Date Esperanza Torres MD [address] [place] [id number] PCP - General Family Medicine 05/03/24 documented as of this encounter
--- OUTSIDE RECORDS SUMMARY | 2024-09-28 12:50 | XMS_ITS | Encounter Summary ---
Author Organization [employer] Address [address] [facility] [address] [place] [address] Care Team Providers Care Receptionist Scheduler Name Role Phone Esperanza Torres MD Primary Care Provider Reason for Visit * Reason Onset Date Comments Recommend FOOD SERVICES MANAGER Tele Tier 2 09/22/2024 Encounter Details Date Type Department Care Team ([facility] st Contact Info) Description 09/22/2024 Telephone [facility] MED[facility] [address] [place] [address] Lolita Su, RANJANA Recommend FOOD SERVICES MANAGER Tele Tier 2 Social History Tobacco Use Types Packs/Day Years [...] encounter Miscellaneous Notes * Telephone Encounter - Lolita Su RN - 09/22/2024 7:26 AM EST What FOOD SERVICES MANAGER Tier would you like this patient to be? I recommend Tele Tier 2, please let me know if you agree or would rather patient be in another FOOD SERVICES MANAGER Tier. Tier 1 = HIGH RISK, Monthly FOOD SERVICES MANAGER visits Tier 2 = MODerate RISK, Q3 Month visits Tier 3 = LOW RISK = Q4-6 month visits documented in this encounter Plan of Treatment Upcoming Encounters Date Type Department Care Team (Late st Contact Info) Description 12/05/2024 11:00 AM EDT Office Visit [facility] MEDICINE [address] [place] [phone] 12/08/2024 9:30 AM EDT Telemedicine [facility] MEDICINE [address] [place] [phone] Lolita Su, RN documented as of this encounter Visit Diagnoses Not on filedocumented in this encounter Additional Health Concerns Assessment Noted Time PHQ-9 Depression Total Score: 0 08/13/20 23 1:32 PM EST documented as of this encounter Care Teams Receptionist Scheduler Relationship Specialty Start Date End Date Esperanza Torres MD [address] [place] [id number] PCP - General Family Medicine 05/03/24 documented as of this encounter
--- OUTSIDE RECORDS SUMMARY | 2024-09-28 12:50 | XMS_ITS | Encounter Summary ---
Author Organization [employer] Address [address] [facility] 7t [place] [address] Care Team Providers Care Behavior Support Specialist Name Role Phone Esperanza Torres MD Primary Care Provider [phone] Reason for Visit * Reason Comments Med Refill Encounter Details Date Type Department Care Team (Late st Contact Info) Description 09/11/2024 Refill [facility] [address] [place] [address] Maylin Brnach FNP [address] [place] [address] Social History Tobacco Use Types Packs/Day Years [...] Description 12/05/2024 11:00 AM EDT Office Visit [facility] [address] [place] [address] 12/08/2024 9:30 AM EDT Telemedicine [facility] [address] [place] [address] Lolita Su, RN documented as of this encounter Visit Diagnoses Not on filedocumented in this encounter Additional Health Concerns Assessment Noted Time PHQ-9 Depression Total Score: 0 08/13/20 23 1:32 PM EST documented as of this encounter Care Teams Behavior Support Specialist Relationship Specialty Start Date End Date Esperanza Torres MD [address] [place] [id number] PCP - General Family Medicine 05/03/24 documented as of this encounter
--- OUTSIDE RECORDS SUMMARY | 2024-09-28 12:50 | XMS_ITS | Encounter Summary ---
Author Organization [employer] Address [address] [facility] 7t [place] [address] Care Team Providers Care Forest Management Teacher Name Role Phone Esperanza Torres MD Primary Care Provider [phone] Encounter Details Date Type Department Care Team (Latest Contact Info) Description 09/28/2024 Travel Social History Tobacco Use Types Packs/Day Years Used Date Smoking Tobacco: Every Day Cigarettes Smokeless Tobacco: Never Comments:Smoking 60 + years Alcohol Use Standard Drinks/Week Comments Not Currently 0 (1 standard drink = 0.6 oz pur e alcohol) 20 years no etoh Alcohol Answer Date Recorded How often do you have a drink containing alcohol ? 0 09/28/2024 How many drinks containing a lcohol do you have on a typical day when you are drinking? 0 09/28/2024 How often do you have six or more drinks on one occasion? 0 09/28/2024 Depression Answer Date Recorded Patient Health Questionnaire-9 Score 0 09/28/2024 Patient Health Questionnaire-9 Score 0 09/28/2024 Last PHQ-9: Questionnaire Data Not on file 0 09/28/2024 Housing Stability Answer Date Recorded What is [...] things needed for daily living? No 08/13/2023 Intimate Partner Violence Answer Date R ecorded Within the last year, have y ou been afraid of your partner or ex-partner? 2 09/28/2024 Within the last year, have y ou been humiliated or emotionally abused in other ways by your partner or ex-partner? 2 Within the last year, have y ou been kicked, hit, slapped, or otherwise physically hurt by your partner or ex-partner? 2 09/28/2024 Within the last year, have y ou been raped or forced to have any kind of sexual activity by your partner or ex-partner? 2 09/28/2024 Utilities Answer Date Recorded In the past 12 months, has t he electric, gas, oil or water company threatened to shut off services in your home? No 08/13/2023 Depression Answer Date Recorded Patient Health Questionnaire-2 Score 0 09/28/2024 Internet Access Answer Date Recorded Internet Access [...] Description 12/05/2024 11:00 AM EDT Office Visit [facility] [address] [place] [address] 12/08/2024 9:30 AM EDT Telemedicine [facility] [address] [place] [address] Lolita Su RN documented as of this encounter Visit Diagnoses Not on filedocumented in this encounter Additional Health Concerns Assessment Noted Time PHQ-9 Depression Total Score: 0 09/28/19 25 8:52 AM EST documented as of this encounter Care Teams Forest Management Teacher Relationship Specialty Start Date End Date Esperanza Torres MD [address] [place] [address] PCP - General Family Medicine 05/03/24 documented as of this encounter
--- OUTSIDE RECORDS SUMMARY | 2024-09-28 12:50 | XMS_ITS | Clinical Summary ---
Author Organization [facility] Address [address] [place] [address] Care Team Providers Care Charging Plug Placer Name Role Phone Unavailable Primary Care Provider Unavailabl e Social History Tobacco Use Types Packs/Day Years Used Date Smoking Tobacco: Never Assessed Sex and Gender Information Value Date Recorded Sex Assigned at Not on file Gender Identity Not on file Sexual Orientation Not on file Plan of Treatment Health Maintenance Due Date Last Done Comments Hepatitis C Virus Screening 1945 DTaP/Tdap/Td Vaccines (1 - Tdap) 11/13/1966 Pneumococcal Vaccines 50+ (1 of 1 - PCV) 11/13/1997 Zoster (Shingles) Vaccine (1 of 2) 11/13/1997 RSV Vaccine 60 years and old er and Patients (1 - 1-dose 75+ series) 11/13/2022 COVID-19 Vaccine ( - 2023-2 5 season) 2024 Hepatitis B Vaccines Aged Out No long er eligible based on patient's age to complete this topic
--- OUTSIDE RECORDS SUMMARY | 2024-09-28 12:50 | XMS_ITS | Encounter Summary ---
Author Organization [employer] Address [address] [facility] 7t [place] [address] Care Team Providers Care Hadoop Engineer Name Role Phone Esperanza Torres MD Primary Care Provider [phone] Reason for Visit * Reason Comments Pre-visit Planning SDOH screening negat ashlee and tobacco screening negative Encounter Details Date Type Department Care Team ([facility] st Contact Info) Description 09/19/2024 Patient Outreach [facility] [address] [place] [address] Esperanza Torres MD [address] [place] [address] Pre-visit Planning (SDOH screening negative and tobacco screening negative) Social History Tobacco Use Types Packs/Day Years [...] AM EDT documented as of this encounter Progress Notes * Coral Ambrocio - 09/19/2024 9:09 AM EST CC Coral placed successful outbound call to patient for pre-visit planning. Patient name and confirmed. Patient confirms appt date and time, and has transportation. Biggest concern for appointment at this time is none Patient advised to bring to appointment a photo id and insurance card. Appropriate screenings completed in anticipation of appointment. documented in this encounter Plan of Treatment Upcoming Encounters Date Type Department Care Team (Late st Contact Info) Description 12/05/2024 11:00 AM EDT Office Visit [facility] [address] [place] [address] 12/08/2024 9:30 AM EDT Telemedicine [facility] [address] [place] [address] Lolita Su RN documented as of this encounter Visit Diagnoses Not on filedocumented in this encounter Additional Health Concerns Assessment Noted Time PHQ-9 Depression Total Score: 0 08/13/20 23 1:32 PM EST documented as of this encounter Care Teams Hadoop Engineer Relationship Specialty Start Date End Date Esperanza Torres MD [address] [place] [address] PCP - General Family Medicine 05/03/24 documented as of this encounter
--- OUTSIDE RECORDS SUMMARY | 2024-09-28 12:50 | XMS_ITS | Encounter Summary ---
Author Organization [employer] Address [address] [facility] 7t [place] [address] Care Team Providers Care Superintendent Nonselling Name Role Phone Rom Marcos AGNAlex Primary Care Provider Unavail Maylin BennettP Primary Care Provider [phone] Esperanza Torres MD Primary Care Provider [phone] Encounter Details Date Type Department Care Team (Late st Contact Info) Description 08/05/2022 Abstract [facility] [address] [place], [place] [id number] Provider, MD Cayla Social History Tobacco Use Types Packs/Day Years Used Date Smoking Tobacco: Never Assessed Sex and Gender Information Value Date Recorded Sex Assigned at Male 06/29/2022 10:15 AM EDT Legal Sex Male 10:15 AM EDT Gender Identity Male 06/29/2022 10:15 AM EDT Sexual Orientation Choose not to disclose 2021 10:15 AM EDT COVID-19 Exposure Response Date Recorded In the last 10 days, have yo u been in contact with someone who was confirmed or suspected to have Coronavirus/COVID-19? No / Unsure 08/07/2022 2:46 PM EST documented as of this encounter Plan of Treatment Upcoming Encounters Date Type Department Care Team (Late Contact Info) Description 12/05/2024 11:00 AM EDT Office Visit [facility] [address] [place] [phone] 12/08/2024 9:30 AM EDT Telemedicine [facility] [address] [place] [address] Lolita Su, RN documented as of this encounter Visit Diagnoses Not on filedocumented in this encounter Care Teams Superintendent Nonselling Relationship Specialty Start Date End Date Marcos Cueto AGNP PCP - General Family Medicine 06/01/22 04/27/23 Maylin Branch FNP [address] [place] [address] PCP - General Family Medicine 04/28/23 05/02/24 Esperanza Torres MD [address] [place] [address] PCP - General Family Medicine 05/03/24 documented as of this encounter
--- OUTSIDE RECORDS SUMMARY | 2024-09-28 12:50 | XMS_ITS | Encounter Summary ---
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 Previous BPI completed 05/05/24 with pain severity score of 3, activity interference score of 2. documented in this encounter Plan of Treatment Upcoming Encounters Date Type Department Care Team (Late st Contact Info) Description 12/05/2024 11:00 AM EDT Office Visit [facility] [address] [place] [address] 12/08/2024 9:30 AM EDT Telemedicine [facility] [address] [place] [address] Lolita Su RN documented as of this encounter Visit Diagnoses Not on filedocumented in this encounter Additional Health Concerns Assessment Noted Time PHQ-9 Depression Total Score: 0 08/13/20 23 1:32 PM EST documented as of this encounter Care Teams Finance Clerk Relationship Specialty Start Date End Date Esperanza Torres MD [address] [place] [address] PCP - General Family Medicine 05/03/24 documented as of this encounter
--- OUTSIDE RECORDS SUMMARY | 2024-09-28 12:50 | XMS_ITS | Encounter Summary ---
Author Organization [employer] Address [address] [facility] 7t [place] [address] Care Team Providers Care Executive Casino Host Name Role Phone Esperanza Torres MD Primary Care Provider [phone] Reason for Visit * Reason Onset Date Comments Med Refill 09/15/2024 Encounter Details Date Type Department Care Team (Late st Contact Info) Description 09/15/2024 Refill [facility] [address] [place] [address] Lolita Su RN Chronic back pain, unspecified back location, unspecified back pain laterality Social History Tobacco Use Types Packs/Day Years [...] Telephone Encounter - Lolita Su RN - 09/15/2024 11:35 AM EST TC to [facility], spoke with William, requested Percocet RX for 09/16/24 be cancelled. documented in this encounter Plan of Treatment Upcoming Encounters Date Type Department Care Team (Late st Contact Info) Description 12/05/2024 11:00 AM EDT Office Visit [facility] [address] [place] [address] 12/08/2024 9:30 AM EDT Telemedicine [facility] [address] [place] [address] Lolita Su, RN documented as of this encounter Visit Diagnoses Diagnosis Chronic back pain, unspecified back location, unspecified back pain laterality documented in this encounter Additional Health Concerns Assessment Noted Time PHQ-9 Depression Total Score: 0 08/13/20 23 1:32 PM EST documented as of this encounter Care Teams Executive Casino Host Relationship Specialty Start Date End Date Esperanza Torres MD [address] [place] [address] PCP - General Family Medicine 05/03/24 documented as of this encounter
--- OUTSIDE RECORDS SUMMARY | 2024-09-28 12:50 | XMS_ITS | Encounter Summary ---
Author Organization [employer] Address [address] [facility] 7t [place] [address] Care Team Providers Care Traverse Rod Assembler Name Role Phone Esperanza Torres MD Primary Care Provider [phone] Reason for Visit * Reason Comments Med Change Request Encounter Details Date Type Department Care Team ([facility] st Contact Info) Description 09/28/2024 Refill [facility] [address] [place] [address] Esperanza Torres MD [address] [place] [address] Social History Tobacco Use Types Packs/Day Years [...] Description 12/05/2024 11:00 AM EDT Office Visit [facility] [address] [place] [address] 12/08/2024 9:30 AM EDT Telemedicine [facility] [address] [place] [address] Lolita Su, RN documented as of this encounter Visit Diagnoses Not on filedocumented in this encounter Additional Health Concerns Assessment Noted Time PHQ-9 Depression Total Score: 0 09/28/19 25 8:52 AM EST documented as of this encounter Care Teams Traverse Rod Assembler Relationship Specialty Start Date End Date Esperanza Torres MD [address] [place] [address] PCP - General Family Medicine 05/03/24 documented as of this encounter
--- OUTSIDE RECORDS SUMMARY | 2024-09-28 12:50 | XMS_ITS | Encounter Summary ---
Author Organization [employer] Address [address] [facility] 7t [place] [address] Care Team Providers Care Drum Drier Operator Name Role Phone Esperanza Torres MD Primary Care Provider [phone] Reason for Visit * Reason Comments FASHION MERCHANDISER RV FASHION MERCHANDISER RV Encounter Details Date Type Department Care Team (Late st Contact Info) Description 09/22/2024 9:30 AM EST Telemedicine [facility] [address] [place] [address] Lolita Su RN Chronic back pain, unspecified [...] as of this encounter Progress Notes * Lolita Su RN - 09/22/2024 9:30 AM EST S: Pt called for FASHION MERCHANDISER Revisit. Prescribed Percocet 5mg Q8hr PRN. States he has been taking as prescribed, last dose taken was this morning. He continues to smoke 15 cigarettes daily. Continues to denyETOH use and Illicit drug use. He smokes marijuana daily. He does not have a medical marijuana card. Pt does obtain his marijuana from a dispensary. Currently rates his pain a 3 and states medicationis 100% effective at alleviating his pain. Current pain sites are his shoulders, legs and his lowerback. O: FASHION MERCHANDISER Tele Tier 2. Pt currently prescribed Percocet 5mg Q8hr PRN. CLINIC NURSE verified today. Rx last filled on 09/16/24. Pt's medication is managed by Jennie CAREY. [facility] Nurse Cat reports patient has 66 Percocet remaining, 65 at least expected. Medication is not overused by patient. BPI updated today. Pain severity score of 3.3, activity interference score of 2.7. Previous BPI completed 05/05/24 with pain severity score of 3, activity interference score of 2. Will update PCP with BPI scoring. Last PCPvisit was 02/14/24, seeing new PCP 09/28/24. A: FASHION MERCHANDISER Contract Revsit: Chronic Opioid use related to pain. P: Pt to continue taking medication only as prescribed; Next Tele FASHION MERCHANDISER RV appointment scheduled for12/08/24 @ 9:30am, F/U sooner PRN. Appointment reminder mailed. Pt verbalized understanding and agreed to plan. documented in this encounter Plan of Treatment Upcoming Encounters Date Type Department Care Team (Late st Contact Info) Description 12/05/2024 11:00 AM EDT Office Visit [address] [address] 12/08/2024 9:30 AM EDT Telemedicine [address] [address] Lolita Su, RN documented as of this encounter Visit Diagnoses Diagnosis Chronic back pain, unspecified back location, unspecified back pain laterality documented in this encounter Additional Health Concerns Assessment Noted Time PHQ-9 Depression Total Score: 0 08/13/20 23 1:32 PM EST documented as of this encounter Care Teams Drum Drier Operator Relationship Specialty Start Date End Date Esperanza Torres MD [address] [place] [address] PCP - General Family Medicine 05/03/24 documented as of this encounter
--- OUTSIDE RECORDS SUMMARY | 2024-09-28 12:50 | XMS_ITS | Clinical Summary ---
Author Organization [employer] Address [address] [facility] 7[address] [place] [address] Care Team Providers Care Market Research Manager Name Role Phone Esperanza Torres MD Primary Care Provider [phone] Allergies No known active allergies Medications oxyCODONE-acetami nophen (Percocet) 5-325 MG tabletIndications :Chronic back pain, unspecified back location, unspecified back pain laterality Take 1 tablet by mouth every 8 (eight) hours if needed for severe pain for up to 28 days. 84 tablet 025 2024 Active albuterol (Ventolin HFA) 108 (90 Base) MCG/ACT inhalerIndication s:Chronic obstructive pulmonary disease, unspecified COPD type (CMS/HCC) TAKE 2 PUFFS BY MOUTH EVERY 4 TO 6 HOURS NEEDED 18 g 6 025 Active aspirin (Aspirin Low Dose) 81 MG EC tabletIndications :Non-ST elevation myocardial infarction (NSTEMI) (CMS/HCC) Take 1 tablet (81 mg) by mouth Once per day. 90 tablet 3 025 Active atorvastatin (Lipitor) 40 MG tabletIndications :Hyperlipidemia, unspecified hyperlipidemia type Take 1 tablet by mouth every day in the evening 90 tablet 3 025 Active metoprolol succinate XL (Toprol-XL) 25 MG 24 hr tablet TAKE 1 TABLET BY MOUTH EVERY DAY 90 tablet 3 025 Active Multiple Vitamin (Multi-Vitamin) tabletIndications :Primary hypertension Take 1 tablet by mouth Once per day. 90 tablet 3 Active tiotropium (Spiriva HandiHaler) 18 MCG inhalation capsuleIndication s:Chronic obstructive pulmonary disease, unspecified COPD type (CMS/HCC) Place 1 capsule (18 mcg) into inhaler and inhale in the morning. 30 capsule 11 Active fluticasone (Flonase) 50 MCG/ACT nasal sprayIndications: Chronic obstructive pulmonary disease, unspecified COPD type (CMS/HCC) Administer 1 spray into each nostril at bedtime. 16 g 11 Active citalopram (CeleXA) 10 MG tabletIndications :Depressive disorder Take 1 tablet (10 mg) by mouth in the morning. 90 tablet 3 Active naloxone (Narcan) 4 mg/0.1 mL nasal sprayIndications: Chronic back pain, unspecified back location, unspecified back pain laterality Administer 1 spray (4 mg) into affected nostril(s) if needed for opioid reversal. 2 each 2 Active Skin Protectants, Misc. (eucerin) creamIndications: Seborrheic keratosis Apply topically if needed for wound care. 99 g 11 025 2025 Active Multiple Vitamin (Multi-Vitamin) tablet take 1 tablet by oral route every day with food 2024 Discontinued(R eorder (will not trigger notification to Pharmacy)) nicotine (Nicotrol) 10 MG inhaler Inhale 6 (six) times a day. 020 2024 Discontinued(T herapy completed) tiotropium (Spiriva HandiHaler) 18 MCG inhalation capsule inhale 1 capsule (18MCG) by inhalation route every day 021 2024 Discontinued(R eorder (will not trigger notification to Pharmacy)) fluticasone (Flonase) 50 MCG/ACT nasal spray Administer 1 spray into each nostril at bedtime. 16 g 11 023 2024 Discontinued(R eorder (will not trigger notification to Pharmacy)) Aspirin Low Dose 81 MG EC tablet TAKE 1 TABLET (81 MG) BY MOUTH IN THE MORNING 90 tablet 3 024 2024 Discontinued(R eorder (will not trigger notification to Pharmacy)) citalopram (CeleXA) 10 MG tablet TAKE 1 TABLET BY MOUTH EVERY DAY IN THE MORNING 90 tablet 3 024 2024 Discontinued omeprazole (PriLOSEC) [address] capsule TAKE 1 CAPSULE BY MOUTH EVERY DAY BEFORE A MEAL 90 capsule 3 2024 Discontinued(T herapy completed) naloxone (Narcan) 4 mg/0.1 mL nasal sprayIndications: Chronic back pain, unspecified back location, unspecified back pain laterality Administer 1 spray (4 mg) into affected nostril(s) if needed for opioid reversal. 2 each 2 024 2024 Discontinued(R eorder (will not trigger notification to Pharmacy)) albuterol (Ventolin HFA) 108 (90 Base) MCG/ACT inhaler TAKE 2 PUFFS BY MOUTH EVERY 4 TO 6 HOURS NEEDED 18 g 3 2024 Discontinued(R eorder (will not trigger notification to Pharmacy)) oxyCODONE-acetami nophen (Percocet) 5-325 MG tabletIndications :Chronic back pain, unspecified back location, unspecified back pain laterality Take 1 tablet by mouth every 8 (eight) hours if needed for severe pain for up to 28 days. Do not start before August 18, 2024. 84 tablet 024 2024 Discontinued(R eorder (will not trigger notification to Pharmacy)) metoprolol succinate XL (Toprol-XL) 25 MG 24 hr tablet TAKE 1 TABLET BY MOUTH EVERY DAY 90 tablet 3 024 2024 Discontinued(R eorder (will not trigger notification to Pharmacy)) atorvastatin (Lipitor) 40 MG tabletIndications :Hyperlipidemia, unspecified hyperlipidemia type TAKE 1 TABLET BY MOUTH EVERY DAY IN THE EVENING 90 tablet 3 024 2024 Discontinued(R eorder (will not trigger notification to Pharmacy)) citalopram (CeleXA) 10 MG tablet TAKE 1 TABLET BY MOUTH EVERY DAY IN THE MORNING 90 tablet 3 025 2024 Discontinued(R eorder (will not trigger notification to Pharmacy)) oxyCODONE-acetami nophen (Percocet) 5-325 MG tabletIndications :Chronic back pain, unspecified back location, unspecified back pain laterality Take 1 tablet by mouth every 8 (eight) hours if needed for severe pain for up to 28 days. Do not start before September 16, 2024. 84 tablet 025 2024 Discontinued(R eorder (will not trigger notification to Pharmacy)) Active Problems Problem Noted Date Diagnosed Date Chronic use of opiate drug for therapeutic purpo se 09/28/2024 Assessment & Plan (09/28/2024 10:21 AM EST): Dx: Knee osteoarthritis Rx: Percocet 5/325 TID Last [employer] agreement: Tier II (visit every 3 months) Additional considerations: prescribed for 12 years Interested in chronic pain groups Timeline: Macrocytosis 01/13/2024 Hypertension 01/13/2024 Leucocytosis 01/13/2024 Myocardial infarction 01/13/2024 Sciatica 01/13/2024 Coronary artery disease 07/31/2020 Chronic obstructive lung disease 01/25/2015 Depressive disorder 01/25/2015 Flatulence, eructation and gas pain 01/25/2015 Gastroesophageal reflux disease 01/25/2015 Tobacco dependence syndrome 01/25/2015 Backache 02/13/2014 Abdominal aortic aneurysm 12/14/2013 Cardiomyopathy 07/26/2012 Gout 07/26/2012 Hyperlipidemia 07/26/2012 Encounters Date Type Department Care Team Description 09/28/2024 9:00 AM EST Office Visit [facility] [address] [place] [phone] Esperanza Torres MD Non-ST elevation myocardial infarction (NSTEMI) (CMS/HCC) (Primary Dx); Encounter for immunization; Chronic obstructive pulmonary disease, unspecified COPD type (CMS/HCC); Abdominal aortic aneurysm (AAA) without rupture, unspecified part (CMS/HCC); Cardiomyopathy, unspecified type (CMS/HCC); Hyperlipidemia, unspecified hyperlipidemia type; Chronic back pain, unspecified back location, unspecified back pain laterality; Dietary counseling; Exercise counseling; Overweight; Coronary artery disease involving [place] heart, unspecified vessel or lesion type, unspecified whether angina present; Primary hypertension; Tobacco dependence syndrome; Depressive disorder; Seborrheic keratosis; Chronic use of opiate drug for therapeutic purpose; Bilateral primary osteoarthritis of knee 09/28/2024 Telephone [facility] [address] [place] [address] Geneva Russell RN 09/28/2024 Refill [facility] [address] [facility] [place] [address] Esperanza Torres MD 09/28/2024 Travel 09/22/2024 9:30 AM EST Telemedicine [facility] [address] [place] [address] Lolita Su RN Chronic back pain, unspecified back location, unspecified back pain laterality 09/22/2024 Telephone [facility] [address] [place] [address] Lolita Su RN BPI Scoring 09/22/2024 Travel 09/22/2024 Telephone [facility] [address] [place] [phone] Lolita Su RN Recommend [employer] Tele Tier 2 09/19/2024 Patient Outreach [facility] [address] [place] [address] Esperanza Torres MD Pre-visit Planning (SDOH screening negative and tobacco screening negative) 09/15/2024 Refill [facility] [address] [place] [address] Lolita Su RN Chronic back pain, unspecified back location, unspecified back pain laterality 09/11/2024 Refill [facility] [address] [place] [address] Lolita Su RN Chronic back pain, unspecified back location, unspecified back pain laterality 09/11/2024 Refill [facility] [address] [place] [address] Maylin Branch FNP 09/05/2024 Telephone [facility] [address] [place] [address] Vidhya Richard MA RS appt 08/29/2024 Refill [facility] [address] [place], [place] [phone] Maylin Branch FNP Hyperlipidemia, unspecified hyperlipidemia type 08/20/2024 Refill [facility] [address] [place] [address] Maylin Branch FNP 08/15/2024 Refill [facility] [address] [place] [address] Esperanza oTrres MD Chronic back pain, unspecified back location, unspecified back pain laterality 07/31/2024 Telephone [facility] [address] [place] [address] Esperanza Torres MD No Show 07/18/2024 Patient Outreach [facility] [address] [place] [address] Esperanza Torres MD Pre-visit Planning ((SDOH screening negative tobacco screening positive)) 07/17/2024 Refill [facility] [address] [place] [address] Esperanza Torres MD Chronic back pain, unspecified back location, unspecified back pain laterality 07/12/2024 Refill [facility] [address] [place] [address] Lolita Su RN 07/07/2024 10:30 AM EST Telemedicine [facility] [address] [place] [address] Lolita Su RN Chronic back pain, unspecified back location, unspecified back pain laterality 07/07/2024 Travel from Last 3 Months Immunizations Name Administration Dates Next Due Influenza High-dose Quadriva lent Preservative Free 07/19/2020 Influenza injectable quadriv alent IIV4 with preservative 07/30/2016 Influenza injectable quadriv alent preservative free 07/15/2021,06/12/2019,2018 Influenza, High Dose Seasona l, Preservative Free 06/02/2017 Influenza, IIV3, injectable 05/22/2014, 9 Influenza, seasonal, injecta ble, preservative free 09/28/2024 Moderna Covid-19 Vaccine 12+ 12/09/2020,11/12/19 21 Pneumococcal Conjugate PCV 13 04/10/2021, 019 Pneumococcal Polysaccharide PPSV23 12/16/2007 TD (adult), 2 Lf tetanus tox oid, preservative free, adsorbed 12/16/2007 Td (adult), 5 Lf tetanus tox oid, preservative free, adsorbed 05/20/2013 Tdap 2018 Zoster, Recombinant 2018 Zoster, live 07/30/2014 Family History Medical History Relation Name Comments Diabetes type II Brother Diabetes type II Father Relation Name Status Comments Brother Father Social History Tobacco Use Types Packs/Day Years Used Date Smoking Tobacco: Every Day Cigarettes Smokeless Tobacco: Never Tobacco Cessation:Ready to Q uit: Not Asked; Counseling Given: Not Answered Comments:Smoking 60 + years Alcohol Use Standard [...] the past 12 months, has t he [employer], gas, oil or water company threatened to [...] not to disclose 2021 10:15 AM EDT Last Filed Vital Signs Vital Sign Reading Time Taken Comments Blood Pressure 138/60 09/28/2024 8:50 AM EST Pulse 78 09/28/2024 8:50 AM EST Temperature 36.1 ??C (97 ??F) 09/28/2024 8:50 AM EST Respiratory Rate 18 09/28/2024 8:50 AM EST Oxygen Saturation 98% 02/14/2024 10:19 AM EDT Inhaled Oxygen Concentration - - Weight 83.6 kg (184 lb 4 oz) 09/28/2024 8:50 AM EST Height 172.7 cm (5' 8 ) 09/28/2024 8:50 AM EST Body Mass Index 28.02 09/28/2024 8:50 AM EST Plan of Treatment Upcoming Encounters Date Type Department Care Team (Late st Contact Info) Description 12/05/2024 11:00 AM EDT Office Visit [facility] [address] [place] [phone] 12/08/2024 9:30 AM EDT Telemedicine [facility] [address] [place] [phone] Lolita Su, RN Health Maintenance Due Date Last Done Comments Zoster Vaccines (3 of 3) 01/09/2019 2018, 08/2013 RSV Patients and Patients Aged 60 years or older (1 - 1-dose 75+ series) 11/13/2022 COVID-19 Vaccine (3 - season) 2024 12/09/2020, 11/11/2020 SDOH Screening 09/19/2025 09/19/2024 Alcohol/Substance Use Screening 09/28/2025 09/28/2024 Depression Screening 09/28/2025 09/28/2024, 09/28/19 Diabetes: Hemoglobin A1C 09/28/2025 09/28/2024, 04/2020 Tobacco Screening 09/28/2025 09/28/2024 Pneumococcal Vaccine: 50+ Years (3 of 3 - PCV20 or PCV21) 04/10/2026 04/10/2021, 2018, 12/16/2007 DTaP/Tdap/Td Vaccines (2 - Td or Tdap) 2028 2018, 05/20/2013, 12/16/2007 Lipid Panel 09/28/2029 09/28/2024, 04/2022, 07/08/2020 Influenza Vaccine Completed 09/28/2024, , 07/19/2020, Additional history exists HIB Vaccines Aged Out No longer eligi ble based on patient's age to complete this topic HPV Vaccines Aged Out No longer eligi ble based on patient's age to complete this topic Hepatitis A Vaccines Discontinued Hepatitis B Vaccines Aged Out No long er eligible based on patient's age to complete this topic Hepatitis C Screening Discontinued IPV Vaccines Aged Out No longer eligi ble based on patient's age to complete this topic Meningococcal Vaccine Aged Out No kennedy greer eligible based on patient's age to complete this topic RSV under 20 months Aged Out No longe r eligible based on patient's age to complete this topic Rotavirus Vaccines Aged Out No longer eligible based on patient's age to complete this topic Procedures Procedure Name Priority Date/Time Associated Diagnosis Comments HEMOGLOBIN A1C Routine 09/28/2024 9:48 AM EST Non-ST elevation myocardial infarction (NSTEMI) ([facility]) COMPREHENSIVE METABOLIC PANEL Routine 09/28/2024 9:48 AM EST Non-ST elevation myocardial infarction (NSTEMI) ([facility]) CBC WITH AUTO DIFFERENTIAL Routine 09/28/2024 9:48 AM EST Non-ST elevation myocardial infarction (NSTEMI) ([facility]) LIPID PANEL, STANDARD Routine 09/28/2024 9:48 AM EST Non-ST elevation myocardial infarction (NSTEMI) ([facility]) from Last 3 Months Results * (ABNORMAL) CBC auto differential (09/28/2024 9:48 AM EST) White Blood Count 7.8 4.8 - 10.8 X10*3/uL [facility] Red Blood Count 4.51(L) 4.60 - 5.80 X10*6/uL [facility] Hemoglobin 15.4 14.0 - 18.0 g/dl [facility] Hematocrit 45.2 42.0 - 52.0 % [facility] Mean Corpuscular Volume 100.2(H) 80.0 - 98.0 fL [facility] Mean Corpuscular Hemoglobin 34.1(H) 27.0 - 33.0 pg [facility] Mean Corpuscular HGB Conc 34.1 31.0 - 36.0 g/dl [facility] Red Cell Distribution Width 12.4 11.0 - 16.0 % [facility] Platelet Count 158(L) 160 - 400 X10*3/uL [facility] Mean Platelet Volume 11.7 9.4 - 12.4 fL [facility] Neutrophils Percent Auto 61.4 45 - 73 % [facility] Imm Gran Pct Auto 0.4 0.0 - 0.4 % [facility] Lymphocytes Percent Auto 24.4 20 - 40 % [facility] Monocytes Percent Auto 8.8 2 - 11 % [facility] Eosinophils Percent Auto 4.1(H) 0 - 4 % [facility] Basophils Percent Auto 0.9 0 - 2 % [facility] NRBC Pct Auto 0.0 0.0 - 0.2 /100WBC [facility] Neutrophils Absolute Auto 4.8 2.0 - 8.3 x10*3/uL [facility] Imm Gran Abs Auto 0.03 0.00 - 0.03 X10*3/uL [facility] Lymphocytes Absolute Auto 1.9 1.2 - 4.9 X10*3/uL [facility] Monocytes Absolute Auto 0.7 0.1 - 1.2 X10*3/uL [facility] Eosinophils Absolute Auto 0.3 0.0 - 0.4 X10*3/uL [facility] Basophils Absolute Auto 0.1 0.0 - 0.2 X10*3/uL [facility] NRBC Abs Auto 0.000 0.0 - 0.012 X10*3/uL [facility] Blood Venous blood specimen / Unknown 09/28/2024 9:48 AM EST 09/28/2024 11:04 AM EST us Esperanza Torres MD LAB BLOOD ORDERABLES Final Res ult [facility] [address] [place] [phone] * Hemoglobin A1c (09/28/2024 9:48 AM EST) Hemoglobin A1c 5.9 <6.0 % [facility] Comment:Hemoglobin A1C Refer ence Range Adults: 4.8 - 6.0 % Non diabetic: < 6.0 % Goal: < 7.0 %Additional Action Suggested: > 8.0 %Note: Hemoglobin A1c results are invalid for patients with abnormal amounts of HbF. Blood transfusions may impact the HbA1c concentration in the patient sample. Estimated Average Glucose 123 mg/dL [facility] Comment:eAG = Estimated ave rage glucose which is %A1C expressed asaverage glucose, using the formula of the [id number] Glucose study (ADAG), Diabetes Care, Vol.31,#8,Mar. 2007 Blood Venous blood specimen / Unknown 09/28/2024 9:48 AM EST 09/28/2024 11:04 AM EST us Esperanza Torres MD LAB BLOOD ORDERABLES Final Res ult Performing Organization Address [facility] Co de Phone Number [facility] [address] [place] [phone] * (ABNORMAL) Lipid Panel, Standard (09/28/2024 9:48 AM EST) Triglycerides 103 <150 mg/dL [facility] Comment:Desirable Triglyceri de: less than 150 mg/dLBorderline High Triglyceride 150-199 mg/dLHigh Triglyceride: 200-499 mg/dLVery High Triglyceride: greater than or equal to 5OO mg/dL Cholesterol 130 <200 mg/dL [facility] Comment:Desirable Cholestero l: less than 200 mg/dLBorderline High Cholesterol: 200-239 mg/dLHigh Cholesterol: greater than 239 mg/dL LDL Cholesterol Calculated 83 <100 mg/dL [facility] Comment:Desirable LDL: less than 100 mg/dLNear Optimal/Above Optimal LDL: 110- 129 mg/dLBorderline High LDL: 130-159 mg/dLHigh LDL: 160-189 mg/dLVery High LDL: greater than or equal to 190 mg/dL HDL Cholesterol 27(L) >40 mg/dL [facility] Comment:Desirable HDL: great er than 40 mg/dL Note: This HDL assay may give artificially low results in patients with liver disease. Blood Venous blood specimen / Unknown 09/28/2024 9:48 AM EST 09/28/2024 11:04 AM EST us Esperanza Torres MD LAB BLOOD ORDERABLES Final Res ult Performing Organization Address [facility]/ZIP Co de Phone Number [facility] [address] [place] [phone] * (ABNORMAL) Comprehensive Metabolic Panel (09/28/2024 9:48 AM EST) Sodium 143 135 - 145 mmol/L [facility] Potassium 3.9 3.3 - 5.1 mmol/L [facility] Chloride 110(H) 96 - 108 mmol/L [facility] Carbon Dioxide 27 22 - 29 mmol/L [facility] Anion Gap 10(L) 12 - 20 [facility] Urea Nitrogen (BUN) 13 9 - 16 mg/dL [facility] Creatinine, Serum 0.88 0.5 - 1.4 mg/dL [facility] Estimated Glomerular Filt Rate >60 [facility] Comment:Chronic Kidney Disea se: Estimated GFR < 60 mL/min/1.13m8Suxwek Kidney Disease: Estimated GFR < 15 mL/min/1.73m2 Glucose 115 60 - 115 mg/dL [facility] Calcium 8.5 8.4 - 10.2 mg/dL [facility] Bilirubin, Total 0.5 0.0 - 1.0 mg/dL [facility] Aspartate Amino Transferase 23 5 - 37 U/L [facility] Alanine Aminotransferase 12 0 - 40 U/L [facility] Total Protein 7.5 6.5 - 8.0 g/dL [facility] Albumin Level 3.8 3.5 - 5.0 g/dL [facility] Alkaline Phosphatase 91 39 - 117 U/L [facility] Blood Venous blood specimen / Unknown 09/28/2024 9:48 AM EST 09/28/2024 11:04 AM EST us Esperanza Torres MD LAB BLOOD ORDERABLES Final Res ult [facility] [address] [place] [phone] from Last 3 Months Insurance [facility] DUAL [employer]PLETE Care Teams Market Research Manager Relationship Specialty Start Date End Date Esperanza Torres MD [address] [place] [address] [place] [phone] PCP - General Family Medicine 05/03/24
--- OUTSIDE RECORDS SUMMARY | 2024-09-28 12:50 | XMS_ITS | Encounter Summary ---
Author Organization [employer] Address [address] [facility] [address] [place] [address] Care Team Providers Care Database Modeler Name Role Phone Esperanza Torres MD Primary Care Provider [phone] Reason for Visit * Reason Comments Med Refill Encounter Details Date Type Department Care Team (Late st Contact Info) Description 08/29/2024 Refill [facility] [address] [place] [address] Maylin Branch, TAP BUILDER [address] [place] [address] Hyperlipidemia, unspecified hyperlipidemia type Social History Tobacco Use Types Packs/Day Years [...] Description 12/05/2024 11:00 AM EDT Office Visit [facility] [address] [place] [phone] 12/08/2024 9:30 AM EDT Telemedicine [facility] [address] [place] [phone] Lolita Su, RN documented as of this encounter Visit Diagnoses Diagnosis Hyperlipidemia, unspecified hyperlipidemia type documented in this encounter Additional Health Concerns Assessment Noted Time PHQ-9 Depression Total Score: 0 08/13/20 23 1:32 PM EST documented as of this encounter Care Teams Database Modeler Relationship Specialty Start Date End Date Esperanza Torres MD [address] [place] [phone] PCP - General Family Medicine 05/03/24 documented as of this encounter
--- OUTSIDE RECORDS SUMMARY | 2024-09-28 12:50 | XMS_ITS | Encounter Summary ---
Author Organization [employer] Address [address] [facility] [address] [place] [address] Care Team Providers Care Telegraph Service Clerk Name Role Phone Esperanza Torres MD Primary Care Provider [phone] Reason for Visit * Reason Onset Date Comments Med Refill 09/11/2024 Encounter Details Date Type Department Care Team (Late st Contact Info) Description 09/11/2024 Refill [facility] [address] [place] [address] Lolita Su RN Chronic back pain, unspecified [...] Description 12/05/2024 11:00 AM EDT Office Visit [facility] [address] [place] [phone] 12/08/2024 9:30 AM EDT Telemedicine [facility] [address] [place] [phone] Lolita Su, RANJANA documented as of this encounter Visit Diagnoses Diagnosis Chronic back pain, unspecified back location, unspecified back pain laterality documented in this encounter Additional Health Concerns Assessment Noted Time PHQ-9 Depression Total Score: 0 08/13/20 23 1:32 PM EST documented as of this encounter Care Teams Telegraph Service Clerk Relationship Specialty Start Date End Date Esperanza Torres MD [address] [place] [phone] PCP - General Family Medicine 05/03/24 documented as of this encounter
--- OUTSIDE RECORDS SUMMARY | 2024-09-28 12:50 | XMS_ITS | Encounter Summary ---
Author Organization [employer] Address [address] [facility] [address] [place] [address] Care Team Providers Care City Library Director Name Role Phone Maylin Branch Primary Care Provider [phone] Esperanza Torres MD Primary Care Provider [phone] Reason for Visit * Reason Onset Date Comments Med Refill 02/28/2024 Encounter Details Date Type Department Care Team (Late st Contact Info) Description 02/28/2024 Telephone [facility] MEDICINE [address] [place] [address] Maylin Branch FNP [address] [place] [address] Med Refill Social History Tobacco Use Types Packs/Day Years [...] the past 12 months, has t he [employer], gas, oil or water company threatened to [...] encounter Miscellaneous Notes * Telephone Encounter - Keri Arellano RN - 02/28/2024 12:10 PM EDT Just FYI, RX send for approval. Last time filled on 02/04/2024 for 28 days supply total qty - 84. * Telephone Encounter - Fabian Hall - 02/28/2024 8:41 AM EDT Tc from [facility] requesting a refill for oxyCODONE-acetaminophen (Percocet) 5-325 MG tablet documented in this encounter Plan of Treatment Upcoming Encounters Date Type Department Care Team (Late st Contact Info) Description 12/05/2024 11:00 AM EDT Office Visit [address] [address] 12/08/2024 9:30 AM EDT Telemedicine [facility] MEDICINE [address] [place] [address] Lolita Su, RN documented as of this encounter Visit Diagnoses Not on filedocumented in this encounter Additional Health Concerns Assessment Noted Time PHQ-9 Depression Total Score: 0 08/13/20 1:32 PM EST documented as of this encounter Care Teams City Library Director Relationship Specialty Start Date End Date Maylin Branch FNP [address] [place] [address] PCP - General Family Medicine 04/28/23 05/02/24 Esperanza Torres MD [address] [place] [phone] PCP - General Family Medicine 05/03/24 documented as of this encounter
--- OUTSIDE RECORDS SUMMARY | 2024-09-28 12:50 | XMS_ITS | Encounter Summary ---
Author Organization [email or web address] Address [address] [facility] [address] [place] [address] Care Team Providers Care Wheel Truing Machine Tender Name Role Phone Esperanza Torres MD Primary Care Provider [phone] Reason for Referral * Consultation (Routine) - Closed Specialty Diagnoses / Procedures Referred By Andra powell Referred To Contact Family Medicine Diagnoses Chronic use of opiate drug for therapeutic purpose Bilateral primary osteoarthritis of knee Esperanza Torres MD [address] [place] [phone] Phone: tel: fax: Referral ID Status Reason Start Date Expiration Date V isits Requested Visits Authorized [id number] Closed Consult and Treat 09/28/2024 09/28/2025 1 1 Encounter Details Date Type Department Care Team (Latest Contact Info) Description 09/28/2024 9:00 AM EST Office Visit [facility] MEDICINE [address] [place] [phone] Esperanza Torres MD [address] [place], [place] [phone] Non-ST elevation myocardial infarction (NSTEMI) (CMS/HCC) (Primary Dx); Encounter for immunization; Chronic obstructive pulmonary disease, unspecified COPD type (CMS/HCC); Abdominal aortic aneurysm (AAA) without rupture, unspecified part (CMS/HCC); Cardiomyopathy, unspecified type (CMS/HCC); Hyperlipidemia, unspecified hyperlipidemia type; Chronic back pain, unspecified back location, unspecified back pain laterality; Dietary counseling; Exercise counseling; Overweight; Coronary artery disease involving sun'aq heart, unspecified vessel or lesion type, unspecified whether angina present; Primary hypertension; Tobacco dependence syndrome; Depressive disorder; Seborrheic keratosis; Chronic use of opiate drug for therapeutic purpose; Bilateral primary osteoarthritis of knee Social History Tobacco Use Types Packs/Day Years [...] AM EDT documented as of this encounter Last Filed Vital Signs Vital Sign Reading Time Taken Comments Blood Pressure 138/60 09/28/2024 8:50 AM EST Pulse 78 09/28/2024 8:50 AM EST Temperature 36.1 ??C (97 ??F) 09/28/2024 8:50 AM EST Respiratory Rate 18 09/28/2024 8:50 AM EST Oxygen Saturation - - Inhaled Oxygen Concentration - - Weight 83.6 kg (184 lb 4 oz) 09/28/2024 8:50 AM EST Height 172.7 cm (5' 8 ) 09/28/2024 8:50 AM EST Body Mass Index 28.02 09/28/2024 8:50 AM EST documented in this encounter Progress Notes * Esperanza Torres MD - 09/28/2024 9:00 AM EST Subjective: Aroldo Hill is a 78 y.o. male who presents to the office for a transfer patient visit. Previous PCP [facility]. Current concerns: Pain in shoulders and knees, has been taking Percocet TID for 12 years, does not want to change anything but is open to other considerations. He accepts a referral for chronic pain groups, but wants to come in the spring. Interim history: COPD- uses Spiriva and Albuterol SK- uses emollient cream CA- 15 years ago, on ASA, Lipitor, and Metoprolol His social network is wide: 9 daughters, 2 sons; 54 grandkids [employer]-- once a week to set everything up Patient Active Problem List Diagnosis Abdominal aortic aneurysm (CMS/HCC) Backache Cardiomyopathy (CMS/HCC) Chronic obstructive lung disease (CMS/HCC) Coronary artery disease Depressive disorder Flatulence, eructation and gas pain Gastroesophageal reflux disease Gout Hyperlipidemia Tobacco dependence syndrome Macrocytosis Hypertension Leucocytosis Myocardial infarction (CMS/HCC) Sciatica Chronic use of opiate drug for therapeutic purpose Past Surgical History: Procedure Laterality Date ABDOMINAL AORTIC ANEURYSM REPAIR N/A Family History Problem Relation Name Age of Onset Diabetes type II Father Diabetes type II Brother Social History Living situation: Employment/Education: Diet/exercise: Substance use: -alcohol -tobacco -opioids Sexual activity: Contraception: Mental health: No Known Allergies Review of Systems Constitutional: Negative. Respiratory: Positive for cough and shortness of breath. Cardiovascular: Negative. Gastrointestinal: Negative. Musculoskeletal: Positive for arthralgias and back pain. Skin: Positive for rash. Psychiatric/Behavioral: Positive for dysphoric mood. Visit Vitals BP 138/60 (BP Location: Left arm, Patient Position: Sitting, BP Cuff Size: Adult) Pulse 78 Temp 97 ??F (36.1 ??C) (Oral) Resp 18 Ht 5' 8 (1.727 m) Wt 184 lb 4 oz (83.6 kg) BMI 28.02 kg/m?? Smoking Status Every Day BSA 2 m?? Physical Exam Vitals and nursing note reviewed. Constitutional: Appearance: Normal appearance. HENT: Head: Normocephalic and atraumatic. Cardiovascular: Rate and Rhythm: Normal rate and regular rhythm. Pulses: Normal pulses. Heart sounds: Normal heart sounds. Pulmonary: Effort: Pulmonary effort is normal. Breath sounds: Normal breath sounds. Musculoskeletal: Cervical back: Normal range of motion and neck supple. Skin: General: Skin is warm and dry. Capillary Refill: Capillary refill takes less than 2 seconds. Neurological: General: No focal deficit present. Mental Status: He is alert and oriented to person, place, and time. Psychiatric: Mood and Affect: Mood normal. Behavior: Behavior normal. Problem List Items Addressed This Visit Abdominal aortic aneurysm (CMS/HCC) Backache Relevant Medications naloxone (Narcan) 4 mg/0.1 mL nasal spray Cardiomyopathy (CMS/HCC) Relevant Medications metoprolol succinate XL (Toprol-XL) 25 MG 24 hr tablet Chronic obstructive lung disease (CMS/HCC) Relevant Medications albuterol (Ventolin HFA) 108 (90 Base) MCG/ACT inhaler tiotropium (Spiriva HandiHaler) 18 MCG inhalation capsule fluticasone (Flonase) 50 MCG/ACT nasal spray Coronary artery disease Relevant Medications metoprolol succinate XL (Toprol-XL) 25 MG 24 hr tablet Depressive disorder Relevant Medications citalopram (CeleXA) 10 MG tablet Hyperlipidemia Relevant Medications atorvastatin (Lipitor) 40 MG tablet Tobacco dependence syndrome Hypertension Relevant Medications Multiple Vitamin (Multi-Vitamin) tablet Myocardial infarction (CMS/HCC) - Primary Relevant Medications aspirin (Aspirin Low Dose) 81 MG EC tablet metoprolol succinate XL (Toprol-XL) 25 MG 24 hr tablet Other Relevant Orders Lipid Panel, Standard CBC auto differential Comprehensive Metabolic Panel Hemoglobin A1c Chronic use of opiate drug for therapeutic purpose Current Assessment & Plan Dx: Knee osteoarthritis Rx: Percocet 5/325 TID Last MAGAZINE DESIGNER agreement: Tier II (visit every 3 months) Additional considerations: prescribed for 12 years Interested in chronic pain groups Timeline: Relevant Orders Referral to Chronic Pain Clinic Other Visit Diagnoses Encounter for immunization Relevant Orders FLU VACCINE TRIVALENT (Fluarix) 6 mo + (Completed) Dietary counseling Exercise counseling Overweight Seborrheic keratosis Relevant Medications Skin Protectants, Misc. (eucerin) cream Bilateral primary osteoarthritis of knee Relevant Orders Referral to Chronic Pain Clinic Serbian translation by RAPHAEL Carson Routine Health Maintenance Optometry: no Dental: established with dental home yes ASCVD risk: 78 y.o. male LDL goal is under 80 Lab Review: orders written for new lab studies as appropriate; see orders Routine Cancer Screening Colon CA: routine screening starting at 45-75 years old per ACS -Colonoscopy every 10 years -CT colonography or flex sig every 5 years -Stool DNA test/Cologuard every 3 years -FIT annually Lung CA: Age 50-80 with 20-year pack history send for low-dose CT per USPSTF (order AAA screening with abd ultrasound x 1 in men aged 65-75 y/o who have ever smoked) PSA: shared decision making for routine screening starting at 50 y/o (40-45y/o w/ risk factors) Current Outpatient Medications Medication Sig Dispense Refill albuterol (Ventolin HFA) 108 (90 Base) MCG/ACT inhaler TAKE 2 PUFFS BY MOUTH EVERY 4 TO 6 HOURS NEEDED 18 g 6 aspirin (Aspirin Low Dose) 81 MG EC tablet Take 1 tablet (81 mg) by mouth Once per day. 90 tablet 3 atorvastatin (Lipitor) 40 MG tablet Take 1 tablet by mouth every day in the evening 90 tablet 3 citalopram (CeleXA) 10 MG tablet Take 1 tablet (10 mg) by mouth in the morning. 90 tablet 3 fluticasone (Flonase) 50 MCG/ACT nasal spray Administer 1 spray into each nostril at bedtime. 16 g 11 metoprolol succinate XL (Toprol-XL) 25 MG 24 hr tablet TAKE 1 TABLET BY MOUTH EVERY DAY 90 tablet 3 Multiple Vitamin (Multi-Vitamin) tablet Take 1 tablet by mouth Once per day. 90 tablet 3 naloxone (Narcan) 4 mg/0.1 mL nasal spray Administer 1 spray (4 mg) into affected nostril(s) if needed for opioid reversal. 2 each 2 oxyCODONE-acetaminophen (Percocet) 5-325 MG tablet Take 1 tablet by mouth every 8 (eight) hours if needed for severe pain for up to 28 days. 84 tablet 0 Skin Protectants, Misc. (eucerin) cream Apply topically if needed for wound care. 99 g 11 tiotropium (Spiriva HandiHaler) [address] 1 capsule (18 mcg) into inhaler andinhale in the morning. 30 capsule 11 No current facility-administered medications for this visit. Immunization History Administered Date(s) Administered Influenza High-dose Quadrivalent Preservative Free 07/19/2020 Influenza injectable quadrivalent IIV4 with preservative 07/30/2016 Influenza injectable quadrivalent preservative free 2018, 06/12/2019, 07/15/2021 Influenza, High Dose Seasonal, Preservative Free 06/02/2017 Influenza, IIV3, injectable 05/31/2009, 05/22/2014 Influenza, seasonal, injectable, preservative free 09/28/2024 Moderna Covid-19 Vaccine 12+ 11/11/2020, 12/09/2020 Pneumococcal Conjugate PCV 13 2018, 04/10/2021 Pneumococcal Polysaccharide PPSV23 12/16/2007 TD (adult), 2 Lf tetanus toxoid, preservative free, adsorbed 12/16/2007 Td (adult), 5 Lf tetanus toxoid, preservative free, adsorbed 05/20/2013 Tdap 2018 Zoster, Recombinant 2018 Zoster, live 07/30/2014 documented in this encounter Miscellaneous Notes * Assessment & Plan Note - Esperanza Torres MD - 09/28/2024 10:20 AM EST Associated Problem(s): Chronic use of opiate drug for therapeutic purpose Dx: Knee osteoarthritis Rx: Percocet 5/325 TID Last MAGAZINE DESIGNER agreement: Tier II (visit every 3 months) Additional considerations: prescribed for 12 years Interested in chronic pain groups Timeline: documented in this encounter Plan of Treatment Upcoming Encounters Date Type Department Care Team (Late st Contact Info) Description 12/05/2024 11:00 AM EDT Office Visit [facility] MEDICINE [address] [place] [phone] 12/08/2024 9:30 AM EDT Telemedicine [facility] MEDICINE [address] [place] [phone] Lolita Su, RN Scheduled Referrals Name Type Priority Associated Diagnoses Orde r Schedule Referral to Chronic Pain Clinic Outpatient Referral Routine Chronic use of opiate drug for therapeutic purpose Bilateral primary osteoarthritis of knee Expected: 09/28/2024 (Approximate), Expires: 09/28/2025 documented as of this encounter Procedures Procedure Name Priority Date/Time Associated Diagnosis Comments CBC WITH AUTO DIFFERENTIAL Routine 09/28/2024 9:48 AM EST Non-ST elevation myocardial infarction (NSTEMI) (CMS/HCC) HEMOGLOBIN A1C Routine 09/28/2024 9:48 AM EST Non-ST elevation myocardial infarction (NSTEMI) (CMS/HCC) LIPID PANEL, STANDARD Routine 09/28/2024 9:48 AM EST Non-ST elevation myocardial infarction (NSTEMI) ([facility]) COMPREHENSIVE METABOLIC PANEL Routine 09/28/2024 9:48 AM EST Non-ST elevation myocardial infarction (NSTEMI) ([facility]) documented in this encounter Results * Hemoglobin A1c (09/28/2024 9:48 AM EST) Hemoglobin A1c 5.9 <6.0 % [facility] Comment:Hemoglobin A1C Refer ence Range Adults: 4.8 - 6.0 % Non diabetic: < 6.0 % Goal: < 7.0 %Additional Action Suggested: > 8.0 %Note: Hemoglobin A1c results are invalid for patients with abnormal amounts of HbF. Blood transfusions may impact the HbA1c concentration in the patient sample. Estimated Average Glucose 123 mg/dL [facility] Comment:eAG = Estimated ave rage glucose which is %A1C expressed asaverage glucose, using the formula of the [id number] Glucose study (ADAG), Diabetes Care, Vol.31,#8,Mar. 2007 Blood Venous blood specimen / Unknown 09/28/2024 9:48 AM EST 09/28/2024 11:04 AM EST us Esperanza Torres MD LAB BLOOD ORDERABLES Final Res ult [facility] [address] [place] [phone] * (ABNORMAL) Comprehensive Metabolic Panel (09/28/2024 9:48 AM EST) Sodium 143 135 - 145 mmol/L [facility] Potassium 3.9 3.3 - 5.1 mmol/L [facility] Chloride 110(H) 96 - 108 mmol/L [facility] Carbon Dioxide 27 22 - 29 mmol/L [facility] Anion Gap 10(L) 12 - 20 [facility] Urea Nitrogen (BUN) 13 9 - 16 mg/dL [facility] Creatinine, Serum 0.88 0.5 - 1.4 mg/dL [facility] Estimated Glomerular Filt Rate >60 [facility] Comment:Chronic Kidney Disea se: Estimated GFR < 60 mL/min/[id number] Kidney Disease: Estimated GFR < 15 mL/min/1.73m2 Glucose 115 60 - 115 mg/dL [facility] Calcium 8.5 8.4 - 10.2 mg/dL [facility] Bilirubin, Total 0.5 0.0 - 1.0 mg/dL [facility] Aspartate Amino Transferase 23 5 - 37 U/L [facility] Alanine Aminotransferase 12 0 - 40 U/L [facility] Total Protein 7.5 6.5 - 8.0 g/dL [facility] Albumin Level 3.8 3.5 - 5.0 g/dL [facility] Alkaline Phosphatase 91 39 - 117 U/L [facility] Blood Venous blood specimen / Unknown 09/28/2024 9:48 AM EST 09/28/2024 11:04 AM EST us Esperanza Torres MD LAB BLOOD ORDERABLES Final Res ult [facility] [address] [place] [phone] * (ABNORMAL) CBC auto differential (09/28/2024 9:48 AM EST) White Blood Count 7.8 4.8 - 10.8 X10*3/uL [facility] Red Blood Count 4.51(L) 4.60 - 5.80 X10*6/uL [facility] Hemoglobin 15.4 14.0 - 18.0 g/dl [facility] Hematocrit 45.2 42.0 - 52.0 % [facility] Mean Corpuscular Volume 100.2(H) 80.0 - 98.0 fL [facility] Mean Corpuscular Hemoglobin 34.1(H) 27.0 - 33.0 pg [facility] Mean Corpuscular HGB Conc 34.1 31.0 - 36.0 g/dl [facility] Red Cell Distribution Width 12.4 11.0 - 16.0 % [facility] Platelet Count 158(L) 160 - 400 X10*3/uL [facility] Mean Platelet Volume 11.7 9.4 - 12.4 fL [facility] Neutrophils Percent Auto 61.4 45 - 73 % [facility] Imm Gran Pct Auto 0.4 0.0 - 0.4 % [facility] Lymphocytes Percent Auto 24.4 20 - 40 % [facility] Monocytes Percent Auto 8.8 2 - 11 % [facility] Eosinophils Percent Auto 4.1(H) 0 - 4 % [facility] Basophils Percent Auto 0.9 0 - 2 % [facility] NRBC Pct Auto 0.0 0.0 - 0.2 /100WBC [facility] Neutrophils Absolute Auto 4.8 2.0 - 8.3 x10*3/uL [facility] Imm Gran Abs Auto 0.03 0.00 - 0.03 X10*3/uL [facility] Lymphocytes Absolute Auto 1.9 1.2 - 4.9 X10*3/uL [facility] Monocytes Absolute Auto 0.7 0.1 - 1.2 X10*3/uL [facility] Eosinophils Absolute Auto 0.3 0.0 - 0.4 X10*3/uL [facility] Basophils Absolute Auto 0.1 0.0 - 0.2 X10*3/uL [facility] NRBC Abs Auto 0.000 0.0 - 0.012 X10*3/uL [facility] Blood Venous blood specimen / Unknown 09/28/2024 9:48 AM EST 09/28/2024 11:04 AM EST us Esperanza Torres MD LAB BLOOD ORDERABLES Final Res ult [facility] [address] [place], [place] [phone] * (ABNORMAL) Lipid Panel, Standard (09/28/2024 9:48 AM EST) Triglycerides 103 <150 mg/dL [facility] Comment:Desirable Triglyceri de: less than 150 mg/dLBorderline High Triglyceride 150-199 mg/dLHigh Triglyceride: 200-499 mg/dLVery High Triglyceride: greater than or equal to 5OO mg/dL Cholesterol 130 <200 mg/dL [facility] Comment:Desirable Cholestero l: less than 200 mg/dLBorderline High Cholesterol: 200-239 mg/dLHigh Cholesterol: greater than 239 mg/dL LDL Cholesterol Calculated 83 <100 mg/dL [facility] Comment:Desirable LDL: less than 100 mg/dLNear Optimal/Above Optimal LDL: 110- 129 mg/dLBorderline High LDL: 130-159 mg/dLHigh LDL: 160-189 mg/dLVery High LDL: greater than or equal to 190 mg/dL HDL Cholesterol 27(L) >40 mg/dL [facility] Comment:Desirable HDL: great er than 40 mg/dL Note: This HDL assay may give artificially low results in patients with liver disease. Blood Venous blood specimen / Unknown 09/28/2024 9:48 AM EST 09/28/2024 11:04 AM EST us Esperanza Torres MD LAB BLOOD ORDERABLES Final Res ult [facility] [address] [place] [phone] documented in this encounter Visit Diagnoses Diagnosis Non-ST elevation myocardial infarction (NSTEMI) (CMS/HCC)- Primary Acute myocardial infarction, subendocardial infarction, episode of care unspecified Encounter for immunization Chronic obstructive pulmonary disease, unspecified COPD type (CMS/HCC) Abdominal aortic aneurysm (AAA) without rupture, unspecified part (CMS/HCC) Cardiomyopathy, unspecified type (CMS/HCC) Hyperlipidemia, unspecified hyperlipidemia type Chronic back pain, unspecified back location, unspecified back pain laterality Dietary counseling Dietary surveillance and counseling Exercise counseling Overweight Coronary artery disease involving sun'aq heart, unspecified vessel or lesion type, unspecified whether angina present Primary hypertension Unspecified essential hypertension Tobacco dependence syndrome Tobacco use disorder Depressive disorder Depressive disorder, not elsewhere classified Seborrheic keratosis Chronic use of opiate drug for therapeutic purpose Bilateral primary osteoarthritis of knee documented in this encounter Additional Health Concerns Assessment Noted Time PHQ-9 Depression Total Score: 0 09/28/19 25 8:52 AM EST documented as of this encounter Care Teams Wheel Truing Machine Tender Relationship Specialty Start Date End Date Esperanza Torres MD [address] [place] [address] PCP - General Family Medicine 05/03/24 documented as of this encounter
--- OUTSIDE RECORDS SUMMARY | 2024-09-28 12:51 | XMS_ITS | Encounter Summary ---
Author Organization [employer] Address [address] [facility] [address] [place] [address] Care Team Providers Care Search Lead Name Role Phone Marcos Cueto Primary Care Provider Unavail Maylin Bennett Primary Care Provider [phone] Esperanza Torres MD Primary Care Provider Reason for Visit * Reason Onset Date Comments Med Refill 11/26/2022 Encounter Details Date Type Department Care Team (Late st Contact Info) Description 11/26/2022 Telephone [facility] MEDICINE [address] [place] [address] Marcos Cueto AGNP Med Refill Social History Tobacco Use Types Packs/Day Years Used Date Smoking Tobacco: Every Day Cigarettes Smokeless Tobacco: Never Alcohol Use Standard Drinks/Week Comments Never 0 (1 standard drink = 0.6 oz pur e alcohol) Depression Answer Date Recorded Patient Health Questionnaire-9 [...] suspected to have Coronavirus/COVID-19? No / Unsure 12/10/2022 10:17 AM EDT documented as of this encounter Miscellaneous Notes * Telephone Encounter - Tracey Wakefield LPN - 11/26/2022 11:41 AM EDT Medication pended to PCP awaiting approval. * Telephone Encounter - Fabian Hall - 11/26/2022 11:29 AM EDT Tc from [facility] requesting a refill for albuterol inhaler. documented in this encounter Plan of Treatment Upcoming Encounters Date Type Department Care Team (Late st Contact Info) Description 12/05/2024 11:00 AM EDT Office Visit [facility] MEDICINE [address] [place] [phone] 12/08/2024 9:30 AM EDT Telemedicine [facility] MEDICINE [address] [place] [address], [place] [address] Lolita Su, RN documented as of this encounter Visit Diagnoses Not on filedocumented in this encounter Care Teams Search Lead Relationship Specialty Start Date End Date Marcos Cueto AGNP PCP - General Family Medicine 06/01/22 04/27/23 Maylin Branch FNP [address] [place] [address] PCP - General Family Medicine 04/28/23 05/02/24 Esperanza Torres MD [address] [place] [phone] PCP - General Family Medicine 05/03/24 documented as of this encounter
--- OUTSIDE RECORDS SUMMARY | 2024-09-28 12:51 | XMS_ITS | Encounter Summary ---
Author Organization [employer] Address [address] [facility] [address] [place] [address] Care Team Providers Care Construction Framer Name Role Phone Marcos Cueto Primary Care Provider Unavail Maylin Bennett Primary Care Provider [phone] Esperanza Torres MD Primary Care Provider [phone] Reason for Visit * Reason Onset Date Comments requesting a call back 10/15/2022 Encounter Details Date Type Department Care Team (Late st Contact Info) Description 10/15/2022 Telephone [facility] MEDICINE [address] [place] [address] Marcos Cueto AGNP requesting a call back Social History Tobacco Use Types Packs/Day Years Used Date Smoking Tobacco: Every Day Cigarettes Smokeless Tobacco: Never Alcohol Use Standard Drinks/Week Comments Never 0 (1 standard drink = 0.6 oz pur e alcohol) Sex and Gender Information Value Date Recorded [...] suspected to have Coronavirus/COVID-19? No / Unsure 10/15/2022 11:09 AM EST documented as of this encounter Miscellaneous Notes * Telephone Encounter - Lolita Su RN - 10/15/2022 11:55 AM EST FYI, pt had PLACE CHANGE ROOF BOLTER RV today. BPI updated today, Pain severity score of 7.3, Activity interference score of 7.1. Previous BPI completed 05/26/22, pain severity score of 5.5, activity interference score of5. Will FYI PCP regarding the changes in his BPI scores. * Telephone Encounter - Ines Ambrocio - 10/15/2022 11:02 AM EST Tc from [facility] requesting to speak with you regarding today visit . Best contact # [phone]. documented in this encounter Plan of Treatment Upcoming Encounters Date Type Department Care Team (Late st Contact Info) Description 12/05/2024 11:00 AM EDT Office Visit [address] [address] 12/08/2024 9:30 AM EDT Telemedicine [address] [address] Lolita Su RN documented as of this encounter Visit Diagnoses Not on filedocumented in this encounter Care Teams Construction Framer Relationship Specialty Start Date End Date Marcos Cueto AGNP PCP - General Family Medicine 06/01/22 04/27/23 Maylin Branch FNP [address] [place] [id number] PCP - General Family Medicine 04/28/23 05/02/24 Esperanza Torres MD [address] [place] [id number] PCP - General Family Medicine 05/03/24 documented as of this encounter
--- OUTSIDE RECORDS SUMMARY | 2024-09-28 12:51 | XMS_ITS | Encounter Summary ---
Author Organization [employer] Address [address] [facility] [address] [place] [address] Care Team Providers Care Telephone Directory Distributor Driver Name Role Phone Rom Marcos AGNAlex Primary Care Provider Unavail Maylin Bennett Primary Care Provider [phone] Esperanza Torres MD Primary Care Provider [phone] Encounter Details Date Type Department Care Team (Late st Contact Info) Description 01/20/2023 Abstract [facility] MEDICINE [address] [place] [address] Mimi Carrasquillo MD [address] [place], [place] [id number] Social History Tobacco Use Types Packs/Day Years [...] 11:00 AM EDT Office Visit [facility] MED[facility]INE [address] [place] [address] 12/08/2024 9:30 AM EDT Telemedicine [facility] MED[facility]INE [address] [place] [address] Lolita Su, RANJANA documented as of this encounter Visit Diagnoses Not on filedocumented in this encounter Care Teams Telephone Directory Distributor Driver Relationship Specialty Start Date End Date Marcos Cueto AGNP PCP - General Family Medicine 06/01/22 04/27/23 Myalin Branch FNP [address] [place] [address] PCP - General Family Medicine 04/28/23 05/02/24 Esperanza Torres MD [address] [place] [address] PCP - General Family Medicine 05/03/24 documented as of this encounter
--- OUTSIDE RECORDS SUMMARY | 2024-09-28 12:51 | XMS_ITS ---
Author Name Romy Street NP Address [address] [place] [address] Phone [phone] [facility] Care Team Providers Care Field Specialist Name Role Phone Romy Street Unavailable [phone] Unavailable Unavailable Unavailable [employer] [place] Unavailable MARLEE DAO Unavailable [phone] Reason for Referral Not Available Allergies, adverse reactions, alerts No known allergies History of medication use Medication Class Instructions Start Date End Date oxyCODONE-Acetaminophen 5/325 mg Tab 1 tablet every 8 hours PRN for pain 2022-07-01 No Data Available Aspirin EC 81 mg Tab delayed rel take 1 tablet by mouth daily 2022-07-01 No Data Sophie ilable oxyCODONE-Acetaminophen 5/325 mg Tab TAKE 1 TABLET BY MOUTH EVERY 8 HOURS NEEDED 2022-01-08 No Data Available Metoprolol Succinate ER 25 mg Tab ER 24hr TAKE 1 TABLET BY MOUTH EVERY DAY 2022-01-30 No Data Available Fluticasone Propionate 50 MCG/ACT Suspension SPRAY 1 SPRAY BY INTRANASAL ROUTE EVERY BEDTIME IN EACH NOSTRIL 2021-08-18 No Data Available Atorvastatin Calcium 40 mg Tab TAKE 1 TABLET BY MOUTH EVERY DAY IN THE EVENING 2021-08-21 No Data Available Omeprazole 20 mg Cap delayed rel TAKE 1 CAPSULE BY MOUTH EVERY DAY BEFORE A MEAL 2021-12-04 No Data Available Aspirin Low Dose 81 mg Tab delayed rel TAKE 1 TABLET BY MOUTH EVERY DAY 2021-12-16 No Data Available Citalopram Hydrobromide 10 mg Tab TAKE 1 TABLET BY MOUTH EVERY DAY 2021-12-16 No Data Available ProAir HFA 108 (90 Base) MCG/ACT Aerosol Solution Inhalation 2 inhalations every 3 hours as needed. 2022-07-16 No Data Available Narcan 4 mg/0.1ML Liquid Nasal use 1 spray in one nostril in the event of opioid overdose. Call 911 after use 2023-11-26 No Data Available Problem List Problem Status Onset Date Resolved Date Hypertension Active 2022-07-13 N/A Atherosclerosis of coronary artery of [place] heart without angina pectoris Active 2022-07-13 N/A GERD (gastroesophageal reflux disease) Active 21-07-14 N/A Allergic rhinitis Active 2022-07-13 N/A History of myocardial infarction Active N/A Heart failure, unspecified Active 2022-07-17 N /A Peripheral vascular disease, unspecified Active 2022-07-17 N/A Major depressive disorder, recurrent, mild Active 2022-07-13 N/A Chronic pain Active 2022-12-14 N/A Other problems related to [facility] facilities and other health care Active 2023-11-09 N/A Lumbago with sciatica Active 2022-07-16 N/A Primary osteoarthritis of right knee Active 2021 N/A Hyperlipidemia Active 2022-07-13 N/A Smoker Active 2023-11-26 N/A Asthma with COPD Active 2022-07-16 N/A Opioid use, uncomplicated Active 2022-07-17 N/ A Encounters Encounters Type Facility Date of Service Diagnosis/Co mplaint Pain Assessment - NO pain present (1126F) [facility] [place] Pain Assessment - NO pain present (1126F) [facility] [place] Pain Assessment - NO pain present (1126F) [facility] [place] Pain Assessment - NO pain present (1126F) [facility] [place] Pain Assessment - NO pain present (1126F) [facility] [place] Pain Assessment - NO pain present (1126F) [facility] [place] Pain Assessment - NO pain present (1126F) [facility] [place] Pain Assessment - NO pain present (1126F) [facility] [place] Pain Assessment - NO pain present (1126F) [facility] [place] Hyperlipidemia, unspecifiedAthscl heart disease of mohegan coronary artery w/o ang pctrsGastro-esophageal reflux disease without esophagitisMajor depressive disorder, recurrent, mildAllergic rhinitis, unspecifiedUnspecified asthma, uncomplicatedUnilateral primary osteoarthritis, right kneeLumbago with sciatica, unspecified sideOld myocardial infarctionOpioid dependence, uncomplicatedPeripheral vascular disease, unspecifiedHeart failure, unspecifiedHypertensive heart disease with heart failure Pain Assessment - NO pain present (1126F) [facility] ([place] Pain Assessment - NO pain present (1126F) [facility] [place] Hyperlipidemia, unspecifiedAthscl heart disease of mohegan coronary artery w/o ang pctrsGastro-esophageal reflux disease without esophagitisMajor depressive disorder, recurrent, mildAllergic rhinitis, unspecifiedChronic obstructive pulmonary disease, unspecifiedUnilateral primary osteoarthritis, right kneeLumbago with sciatica, unspecified sideOld myocardial infarctionHeart failure, unspecifiedOpioid dependence, uncomplicatedPeripheral vascular disease, unspecifiedHypertensive heart disease with heart failure Estab. patient 30-39min; chronic exacerbation, 2 stable chronic or 1 acute illness add add modifier 95 for video, (do not use for phone, instead use 86290-57) [facility], ([place]) [place]/2022 Hypertensive heart disease w ith heart failureHeart failure, unspecifiedHyperlipidemia, unspecifiedAthscl heart disease of mohegan coronary artery w/o ang pctrsGastro-esophageal reflux disease without esophagitisMajor depressive disorder, recurrent, mildAllergic rhinitis, unspecifiedChronic obstructive pulmonary disease, unspecifiedUnilateral primary osteoarthritis, right kneeLumbago with sciatica, unspecified sideOld myocardial infarctionOther chronic painPeripheral vascular disease, unspecifiedOpioid dependence, uncomplicated Estab. patient 30-39min; chronic exacerbation, 2 stable chronic or 1 acute illness add add modifier 95 for video, (do not use for phone, instead use 19724-69) [facility] ([place] Estab. patient 30-39min; chronic exacerbation, 2 stable chronic or 1 acute illness add add modifier 95 for video, (do not use for phone, instead use 25780-46) [facility] ([place] Estab. patient 30-39min; chronic exacerbation, 2 stable chronic or 1 acute illness add add modifier 95 for video, (do not use for phone, instead use 01519-94) [facility] ([place] Estab. patient 30-39min; chronic exacerbation, 2 stable chronic or 1 acute illness add add modifier 95 for video, (do not use for phone, instead use 28044-68) [facility], ([place]) 12/14/2022 Estab. patient 30-39min; chronic exacerbation, 2 stable chronic or 1 acute illness add add modifier 95 for video, (do not use for phone, instead use 09541-55) [facility] ([place]/20[place] Estab. patient 30-39min; chronic exacerbation, 2 stable chronic or 1 acute illness add add modifier 95 for video, (do not use for phone, instead use 27459-51) [facility] ([place] Estab. patient 30-39min; chronic exacerbation, 2 stable chronic or 1 acute illness add add modifier 95 for video, (do not use for phone, instead use 52880-28) [facility] ([place]2023 Hyperlipidemia, unspecifiedHypertensive heart disease with heart failureAthscl heart disease of mohegan coronary artery w/o ang pctrsGastro-esophageal reflux disease without esophagitisMajor depressive disorder, recurrent, mildAllergic rhinitis, unspecifiedChronic obstructive pulmonary disease, unspecifiedUnilateral primary osteoarthritis, right kneeLumbago with sciatica, unspecified sideOld myocardial infarctionHeart failure, unspecifiedOpioid dependence, uncomplicatedPeripheral vascular disease, unspecifiedOther chronic painOther problems related to medical facilities and other health careNicotine dependence, unspecified, uncomplicated Estab. patient 30-39min; chronic exacerbation, 2 stable chronic or 1 acute illness add add modifier 95 for video, (do not use for phone, instead use 34266-67) [facility] ([place] Estab. patient 30-39min; chronic exacerbation, 2 stable chronic or 1 acute illness add add modifier 95 for video, (do not use for phone, instead use 01316-30) [facility] Estab. patient 30-39min; chronic exacerbation, 2 stable chronic or 1 acute illness add add modifier 95 for video, (do not use for phone, instead use 01839-27) [facility] Estab. patient 30-39min; chronic exacerbation, 2 stable chronic or 1 acute illness add add modifier 95 for video, (do not use for phone, instead use 57688-61) [facility] Estab. patient 30-39min; chronic exacerbation, 2 stable chronic or 1 acute illness add add modifier 95 for video, (do not use for phone, instead use 73222-32) [facility] [place] Estab. patient 30-39min; chronic exacerbation, 2 stable chronic or 1 acute illness add add modifier 95 for video, (do not use for phone, instead use 85959-43) [facility] Estab. patient 30-39min; chronic exacerbation, 2 stable chronic or 1 acute illness add add modifier 95 for video, (do not use for phone, instead use 04624-74) [facility] Estab. patient 30-39min; chronic exacerbation, 2 stable chronic or 1 acute illness add add modifier 95 for video, (do not use for phone, instead use 97613-79) [facility] Estab. patient 30-39min; chronic exacerbation, 2 stable chronic or 1 acute illness add add modifier 95 for video, (do not use for phone, instead use 81237-77) [facility] [place]2023 Vital Signs Date of Collection Vitals 2022-07-16 12:58:00 Height - 172.72 cmWe ight - 86.18 kgBody Mass Index (BMI) - 28.89 kg/m2BP Diastolic - 70.0 mm[Hg]BP Systolic - 120.0 mm[Hg] 2022-12-14 07:12:16 Height - 172.72 cmWe ight - 83.46 kgBody Mass Index (BMI) - 27.98 kg/m2 2023-11-26 06:36:50 Height - 172.72 cmWe ight - 85.73 kgBody Mass Index (BMI) - 28.74 kg/m2BP Diastolic - 72.0 mm[Hg]BP Systolic - 132.0 mm[Hg]Pain Scale - 3.0 {score} Social History Sex Male History of Procedures Procedures Service Procedure code Service date Servicing provider Phone# Pain Assessment - NO pain present (1126F) 1126F 2022-07-16 No Data Available No Data A vailable Medication List Documented (1159F) 1159F 2022-07-16 No Data Available No Data Sophie ilable Medication Review by prescribing provider or pharmacist documented (1160F) 1160F 2022-07-16 No Data Available No Data Sophie ilable Functional Status Assessed (1170F) 1170F 2022-07-16 No Data Available No Data Avail able Advance Care Directive Advance care planning discussion documented in the medical record (1158F) 1158F 2022-07-16 No Data Available No Data Availa ble SBP < 130 (3074F) 3074F 2022-07-16 No Data Available No Data Available DBP <80 (3078F) 3078F 2022-07-16 No Data Available No Data Available BMI obtained (3008F) 3008F 2022-07-16 No Data Availab le No Data Available New patient,40-59min; chronic exacerbation, 2 stable chronic or 1 acute illness add add modifier 95 for video (do not use for phone, instead use 03724-10) 74479 2022-07-16 No Data Available No Data Availa ble Pain Assessment - NO pain present (1126F) 1126F 2022-08-26 No Data Available No Data A vailable No Data Available 35233 2022-08-26 No Data Available No Data Available Estab. patient 30-39min; chronic exacerbation, 2 stable chronic or 1 acute illness add add modifier 95 for video, (do not use for phone, instead use 36911-91) 91536 2022-12-14 No Data Available No Data Availa ble Medication List Documented (1159F) 1159F 2022-12-14 No Data Available No Data Sophie ilable Medication Review by prescribing provider or pharmacist documented (1160F) 1160F 2022-12-14 No Data Available No Data Sophie ilable Pain Assessment - Pain Documented on a Pain Scale (1125F) 1125F 2022-12-14 No Data Available No Data Sophie ilable Advance Care Directive Advance care planning discussion documented in the medical record (1158F) 1158F 2022-12-14 No Data Available No Data Availa ble BMI obtained (3008F) 3008F 2022-12-14 No Data Availab le No Data Available Advance care planning discussed and documented ? advance care plan or surrogate decision-maker was documented in the medical record. (1123F) 1123F 2022-12-14 No Data Available No Data Availa ble Estab. patient 30-39min; chronic exacerbation, 2 stable chronic or 1 acute illness add add modifier 95 for video, (do not use for phone, instead use 90205-98) 05530 2023-11-26 No Data Available No Data Availa ble Medication List Documented (1159F) 1159F 2023-11-26 No Data Available No Data Sophie ilable Medication Review by prescribing provider or pharmacist documented (1160F) 1160F 2023-11-26 No Data Available No Data Sophie ilable Pain Assessment - Pain Documented on a Pain Scale (1125F) 1125F 2023-11-26 No Data Available No Data Sophie ilable BMI obtained (3008F) 3008F 2023-11-26 No Data Availab le No Data Available Advance Care Directive Advance care planning discussion documented in the medical record (1158F) 1158F 2023-11-26 No Data Available No Data Availa ble Advance care planning discussed and documented ? advance care plan or surrogate decision-maker was documented in the medical record. (1123F) 1123F 2023-11-26 No Data Available No Data Availa ble SBP 130-139 (3075F) 3075F 2023-11-26 No Data Availab le No Data Available DBP <80 (3078F) 3078F 2023-11-26 No Data Available No Data Available Functional Status Assessed (1170F) 1170F 2023-11-26 No Data Available No Data Avail able Functional Status Functional Category Effective Dates Cognition Status: Oriented to Person, Pl pipo and Time 2022-07-16 ADL: Bathing Independent , D ressing Independent , Eating Independent , Ambulation Needs Assistance , Transferring Independent and Toileting Independent 2022-07-16 IADL: Medication Needs Rene tance , Meal Prep Needs Assistance , Shopping Needs Assistance and Driving or Public Transport Needs Assistance 2022-07-16 Falls in last 6 Months: No 2022-07-16 Social Supports - # of Inter actions with Friends/Family in a typical week: daily 50 grandchildren 2023-11-26 Mental Status No Information Assessments Date of Service Assessments 2022-07-16 12:58:00 HyperlipidemiaHypert ensionAtherosclerosis of coronary artery of mohe[place] heart without angina pectorisGERD (gastroesophageal reflux disease)Major depressive disorder, recurrent, mildAllergic rhinitisAsthmaPrimary osteoarthritis of right kneeLumbago with sciaticaHistory of myocardial infarctionOpioid dependence, uncomplicatedPeripheral vascular disease, unspecifiedHeart failure, unspecified 2022-08-26 13:06:54 HyperlipidemiaHypert ensionAtherosclerosis of coronary artery of mo[place]gan heart without angina pectorisGERD (gastroesophageal reflux disease)Major depressive disorder, recurrent, mildAllergic rhinitisAsthma with COPDPrimary osteoarthritis of right kneeLumbago with sciaticaHistory of myocardial infarctionHeart failure, unspecifiedOpioid dependence, uncomplicatedPeripheral vascular disease, unspecified 2022-12-14 07:12:16 HyperlipidemiaHypert ensionAtherosclerosis of coronary artery of mo[place] heart without angina pectorisGERD (gastroesophageal reflux disease)Major depressive disorder, recurrent, mildAllergic rhinitisAsthma with COPDPrimary osteoarthritis of right kneeLumbago with sciaticaHistory of myocardial infarctionHeart failure, unspecifiedOpioid dependence, uncomplicatedPeripheral vascular disease, unspecifiedChronic pain 2023-11-26 06:36:50 HyperlipidemiaHypert ensionAtherosclerosis of coronary artery of [place] heart without angina pectorisGERD (gastroesophageal reflux disease)Major depressive disorder, recurrent, mildAllergic rhinitisAsthma with COPDPrimary osteoarthritis of right kneeLumbago with sciaticaHistory of myocardial infarctionHeart failure, unspecifiedOpioid dependence, uncomplicatedPeripheral vascular disease, unspecifiedChronic painOther problems related to medical facilities and other health careSmoker Plan of Care Date of Service Plans 2022-07-16 12:58:00 Pain Assessment - NO pain documented (1126F)Medication Review by prescribing provider or pharmacist documented (1160F)Medication List Documented (1159F)Functional Status Assessed (1170F)Advance Care Directive Advance care planning discussion documented in the medical record (1158F)BMI obtained (3008F)sbdbTelevideo new patient,40-59min; chronic exacerbation, 2 stable chronic or 1 acute illness add modifier 95Continue to see PCP. Follow-up with [facility] as needed for any acute or disease education needs that may arise.Qlkqsca-yfkwkwxzatad-kqkt-routine lipid panelManaged-metoprolol wvvcwjfhnGkntbgi-WGS-ktqmonlsvy kifgquoueBjluloy-damjshvpsvXotuwrv-psfllrwfpnFjwwwhq-fluticasone sprayManaged-ProAir RHNTtmksax-DokkadoxNurtylp-XpuihknmOkexpgp-cardiac amfw-HVM-hbauhulend succinate-continues to take oxycodone 5/325mg every 8 hours prn,Opioid dependence Pt has tolerance and inability to cut down or stop. Overdose prevention discussed. Be cautious with use.member with advanced age with diagnoses which include HTN, HLD, CAD, vascular diseasecontinues to take atorvastatin 40mg daily, ASA 81mg [facility]FA[facility] with a diagnosis that includes CHF, heart failure is considered a chronic illnessmetoprolol 25mg daily 2022-08-26 13:06:54 Televideo 20-29min; 1 stable chronic or 2 minor; add modifier 95Continue to see PCP. Follow-up with Loren as needed for any acute or disease education needs that may arise 22/03.Cbbimif-jxdghkvbtqhu-fbhv-routine lipid panelManaged-metoprolol jstsvknooXrvcbjl-KDK-ctkzyjzzmt lsctucamtKomqchd-krolpygnhrSxthvxw-ehpqpwxaigPwpypcx-fluticasone sprayManaged-ProAir ITDBpplwis-ByogpjpfCrsbwrt-QkmlqxnlUedjpvr-cardiac lmch-QPJ-yjwxcykmjc succinate-[facility] notes member with a diagnosis that includes CHF, heart failure is considered a chronic illnessmetoprolol 25mg dailycontinues to take oxycodone 5/325mg every 8 hours prn,Opioid dependence Pt has tolerance and inability to cut down or stop. Overdose prevention discussed. Be cautious with use.member with advanced age with diagnoses which include HTN, HLD, CAD, vascular diseasecontinues to take atorvastatin 40mg daily, ASA 81mg daily 2022-12-14 07:12:16 Medication Review by prescribing provider or pharmacist documented (1160F)Medication List Documented (1159F)Functional Status Assessed (1170F)Advance Care Directive Advance care planning discussion documented in the medical record (1158F)BMI obtained (3008F)Televideo 30-39min; chronic exacerbation, 2 stable chronic or 1 acute illness add modifier 95Advance care planning discussed and documented in the medical record ? beneficiary/patient did not wish to or was unable to provide an advance care plan or name a surrogate decision-maker. (1124F)Advance care planning discussed and documented ? advance care plan or surrogate decision-maker was documented in the medical record. (1123F)Continue to see PCP. Follow-up with [facility] as needed for any acute or disease education needs that may arise.Hhidzyn-fhqxghsydkpl-cakq-routine lipid panelManaged-metoprolol yuycazuprTdqyvrl-XKT-efjuqokuey succinateManaged-omeprazoleManaged, but it has to do a lot with his pain -citalopramManaged-fluticasone sprayManaged-ProAir XBRLjmatrv-AuzmreywClnfful-IfgxsypbErpdquc-cardiac miyb-FCM-mxwdejvvoe succinate-[facility] notes member with a diagnosis that includes CHF, heart failure is considered a chronic illnessmetoprolol 25mg dailycontinues to take oxycodone 5/325mg every 8 hours prn,Opioid dependence Pt has tolerance and inability to cut down or stop. Overdose prevention discussed. Be cautious with use.Has Narcan.member with advanced age with diagnoses which include HTN, HLD, CAD, vascular diseasecontinues to take atorvastatin 40mg daily, ASA 81mg dailyHas had chronic pain for 5 years, on percocet, but does not seem to be able to explain where and what the pain is. Was given percocet in ER 5+ yrs ago for pain and has been on it since.Recommend pain clinic (lives in [place]). 2023-11-26 06:36:50 Medication Review by prescribing provider or pharmacist documented (1160F)Medication List Documented (1159F)Functional Status Assessed (1170F)Advance Care Directive Advance care planning discussion documented in the medical record (1158F)BMI obtained (3008F)SBP 130-139 (3075F)DBP <80 (3078F)Televideo 30-39min; chronic exacerbation, 2 stable chronic or 1 acute illness add modifier 95Advance care planning discussed and documented ? advance care plan or surrogate decision-maker was documented in the medical record. (1123F)Pain Assessment - Pain Documented (1125F)Continue to see PCP. Follow-up with [facility] as needed for any acute or disease education needs that may arise.Posxrts-pxotoyzujlsx-rxfh-routine lipid panelAdvised to eat a healthy diet include emphasizing fruits, vegetables, whole grains, poultry, fish and nuts and limiting sugary foods and beverages. Eating this way may help increase fiber, which is also beneficial. A diet high in fiber can help lower cholesterol levels by as much as 10 percent. DASH diet. Increase exercise to 30-45 min q day. Decrease sugary drinks, stop soda intake. Limit ETOH intake. If you smoke, quit smoking.Managed-metoprolol eflskhsczPhxbwel-CMV-hcidzgdnpf succinateManaged-omeprazoleManaged, but it has to do a lot with his pain -citalopramManaged-fluticasone sprayManaged-ProAir INHCONTINGENCY PLANMember to call for the following symptoms: Wheezing/ Increased coughPlanned intervention: Increase use of albuterol inhaler to q2h PRN cough, breathlessness: prednisone taper 40mg x 3 days, 30mg x 3 days, 20mg x 3 days, 10mg x 3 daysfever/chills/change sputum color: doxy 100mg BID x 7 daysManaged-Percocet Pt to continue taking medication only as prescribed; Next Tele [employer] appointment scheduled for 12/24/23 @ 9am, F/U sooner PRNat risk for fallsFall prevention TIPS: Wear sensible shoes. Remove home hazards (Get rid of all rugs/mats in your home). Light up your living space (keep a flash light next to your bed for night time). Use assistive devices.Managed-Percocetfollowed by pain specialist Pt to continue taking medication only as prescribed; Next Tele COMMERCIAL TECHNICIAN [facility] appointment scheduled for 12/24/23 @ 9am, F/U sooner PRNManaged-cardiac ubpg-BLZ-prmvubvrxz succinate-[facility] notes member with a diagnosis that includes CHF, heart failure is considered a chronic illnessmetoprolol 25mg dailycontinues to take oxycodone 5/325mg every 8 hours prn,Opioid dependence Pt has tolerance and inability to cut down or stop. Overdose prevention discussed. Be cautious with use.Has Narcan.Continues to deny ETOH use and Illicit drug use. He smokes marijuana once day, most days. It helps with relaxation. He does not have a medical marijuana card. Pt does obtain his marijuana from a dispensary. Currently rates his pain a 4 and states medication is 90% effective at alleviating pain. Current pain sites are his lower back, both hands, shoulders and his legs.O: SCT Tier 4. Pt currently prescribed Percocet 5mg Q8hr PRN. BONE PULLER verified today. Rx last filled on 10/16/23. Pts medications provided by [facility]. DARLYNA nurse Cat reports he has #65 Percocet remaining. Anticipated he would have 65. Medication is not overused. Last PCP visit was 08/13/23, scheduled next 11/01/23.Opioid: oxycodone Prescriber: Maylin Branch CNP, monitored by Lolita Su RN Use: more than 6 months and longer than intendedOther symptoms: noneDiagnosis: Opioid Use F11.90Consider Naloxone in the home; educate on respiratory depression/sedation/fall riskmember with advanced age with diagnoses which include HTN, HLD, CAD, vascular diseasecontinues to take atorvastatin 40mg daily, ASA 81mg dailyHas had chronic pain for 5 years, on percocet, but does not seem to be able to explain where and what the pain is. Was given percocet in ER 5+ yrs ago for pain and has been on it since.Recommend pain clinic (lives in [place]).When member to call: 1. If bp is elevated sbp>150; dbp>90 or symptomatic-h/a, dizziness, cp, sob. 2. if there is a fall 3. if BS >300 or BS<90 or symptomatic; i.e., dizzy, off balance , shaky, general weakness. 4. if UTI symptoms arise-urinary frequency, dysuria, low abd pain. 5. if pain in knees increases/ or joint pain increased [facility]. Follow-up with Loren as needed for any acute or disease education needs that may arise 22/03.what should be done when the member calls: see each individual diagnosis for contingency plancurrent smoker 8 cigs per dayencouraged to quit smokinghas tried multiple times; will let us know when he is ready Goals Date Goal 2022-07-16 Remember to 2022-07-16 Call me if 2022-07-16 Keep it up Health Concerns Date Concern 2023-11-26 Visit completed gurpreet yip audio and video. Patient/Guardian agreed to visit via telehealth. Today, patient has chief complaint of: follow up care and comprehensive review.Reviewed Allergies, Medications, Active Medical conditions, past medical/surgical history, Social history. 2023-11-26 Most recent hospital stay(s) or ER visit(s) and precipitating factors: none in the last month 2023-11-26 Open HEDIS Measure r marianelaw: done 2023-11-26 PCP f/u: q 6 months f/u 01/2024oxycodone rx'd by pain clinic -narcan ? 2023-11-26 has tried to quit sm oking multiple times-smoking 8 cigs per day. 2023-11-26 has RN -Cat campbell in q week-helps with vitals and medication
--- OUTSIDE RECORDS SUMMARY | 2024-09-28 12:51 | XMS_ITS | Encounter Summary ---
Author Organization [employer] Address [address] [facility] [address] [place] [address] Care Team Providers Care Barge Loader Name Role Phone Marcos Cueto Primary Care Provider Maylin Smith Primary Care Provider [phone] Esperanza Torres MD Primary Care Provider [phone] Reason for Visit * Reason Onset Date Comments Medication Question 11/26/2022 Encounter Details Date Type Department Care Team (Late st Contact Info) Description 11/26/2022 Telephone [facility] [address] [place] [address] Marcos Cueto AGNP Medication Question Social History Tobacco Use Types Packs/Day Years [...] encounter Miscellaneous Notes * Telephone Encounter - Fabian Hall - 11/26/2022 11:30 AM EDT Tc from [facility] requesting to speak to a nurse in regards to script for Spiriva inhaler, states attempted to refill script however was advised by pharmacy pt has not used inhaler for 2 year andwould like to know if pt should continue. Please contact at [phone] documented in this encounter Plan of Treatment Upcoming Encounters Date Type Department Care Team (Late st Contact Info) Description 12/05/2024 11:00 AM EDT Office Visit [facility] [address] [place] [id number] 12/08/2024 9:30 AM EDT Telemedicine [facility] [address] [place] [id number] Lolita Su RN documented as of this encounter Visit Diagnoses Not on filedocumented in this encounter Care Teams Barge Loader Relationship Specialty Start Date End Date Marcos Cueto AGNP PCP - General Family Medicine 06/01/22 04/27/23 Maylin Branch FNP [address] [place] [address] PCP - General Family Medicine 04/28/23 05/02/24 Esperanza Torres MD [address] [place] [address] PCP - General Family Medicine 05/03/24 documented as of this encounter
--- OUTSIDE RECORDS SUMMARY | 2024-09-28 12:51 | XMS_ITS | Encounter Summary ---
Author Organization [employer] Address [address] [facility] [address] [place] [address] Care Team Providers Care General Clerk Name Role Phone Maylin Branch Primary Care Provider [phone] Esperanza Torres MD Primary Care Provider [phone] Encounter Details Date Type Department Care Team (Late st Contact Info) Description 07/13/2023 Abstract [facility] [address] [place] [address] Maylin Branch FNP [address] [place], [place] [id number] Social History Tobacco Use Types Packs/Day Years [...] Description 12/05/2024 11:00 AM EDT Office Visit [address] [address] 12/08/2024 9:30 AM EDT Telemedicine [address] [address] Lolita Su, RANJANA documented as of this encounter Visit Diagnoses Not on filedocumented in this encounter Care Teams General Clerk Relationship Specialty Start Date End Date Maylin Branch FNP [address] [place] [address] PCP - General Family Medicine 04/28/23 05/02/24 Esperanza Torres MD [address] [place] [address] PCP - General Family Medicine 05/03/24 documented as of this encounter
== END 2024-09-28 09:48 | disposition home or self-care (01) ==
LOC: HO.HHCL 09:47
PROVIDERS: Visit Provider General Practice
DX: Z13.1 Encounter for screening for diabetes mellitus (principal); I21.4 Non-ST elevation (NSTEMI) myocardial infarction
CPT/HCPCS: 36415; 80053; 80061; 83036; 85025